=== PATIENT | female | born 1970 | race Caucasian/White ===

== ENCOUNTER 2016-08-30 18:56 | Emergency (ER) | payer OTHER ==
[~2016-08-30] VITALS: Ht 154.9 cm; Wt 58.1 kg
[~2016-08-30 18:56] MED LIST: ALBU2.5V13 NEB; CARI350T PO; HYDR8TAB2 PO; NITR0.4T SL
--- NOTE | 2016-08-30 20:25 | NUR ---
pt seen and examined by ermd with female nurse admissions officer. labs and ct ordered.
[2016-08-30 21:51] LABS: CREATININE 0.7 mg/dL (0.6-1.3); POTASSIUM 3.3 mmol/L (3.5-5.1)
[2016-08-30 21:56] LABS: HEMATOCRIT 40.4 % (37.0-47.0); HEMOGLOBIN 13.3 g/dL (12.0-16.0); MEAN CORPUSCULAR HEMOGLOBIN 32.9 uug (27.0-31.0); MEAN CORPUSCULAR HGB CONC 33 g/dL (32.0-37.0); PLATELET COUNT (AUTO) 227 K/uL (150-450); RED BLOOD CELL COUNT(AUTO) 4.04 MIL/uL (4.20-5.40); RED CELL DISTRIBUTION WIDTH 12.4 % (11.5-14.5); WHITE BLOOD COUNT (AUTO) 4.7 K/uL (4.0-11.2)
[2016-08-30 21:57] LABS: ALBUMIN 4.2 g/dL (3.4-5.0); BILIRUBIN,DIRECT 0.1 mg/dL (0.0-0.2); BILIRUBIN,TOTAL 0.3 mg/dL (0.2-1.0); TOTAL PROTEIN, SERUM 7.2 g/dL (6.4-8.2)
[2016-08-30 22:14] LABS: BAND % (MANUAL) 1 % (0-10); EOSINOPHILS % (MANUAL) 1 % (0-8); LYMPHOCYTES % (MANUAL) 38 % (20-40); MONOCYTES % (MANUAL) 8 % (2-10); NEUTROPHILS % (MANUAL) 52 % (42-75); PLATELET ESTIMATE ADEQUATE
--- NOTE | 2016-08-30 22:47 | NUR ---
pt wanted med for pain, Dr Maicas made aware.
[2016-08-30] MEDS ORDERED: HYDROMORPHONE 1 MG/1 ML DISP.SYRIN IM ONE (23:00)
[2016-08-30] MEDS ORDERED: ONDANSETRON 4 MG/2 ML VIAL IM ONE (23:00)
[2016-08-30] MEDS ORDERED: ONDANSETRON 4 MG/2 ML VIAL ONE (23:24)
[2016-08-30] MEDS ORDERED: HYDROMORPHONE 2 MG/1 ML DISP.SYRIN ONE (23:24)
--- NOTE | 2016-08-30 23:55 | NUR ---
pt given med for pain.....waiting for ermd to discharge pt.
--- NOTE | 2016-08-31 00:35 | NUR ---
Dr darling went to room to talk to pt regarding the ct results and answer questions. aci given to pt and discharged ambulatory in stable condition.
[2016-08-31 01:43] VITALS: BP 100/72
== END 2016-08-31 00:55 | disposition home or self-care (01) ==
LOC: ER 18:59
DX: R10.9 Unspecified abdominal pain (principal); F11.20 Opioid dependence, uncomplicated; Z88.2 Allergy status to sulfonamides; Z88.6 Allergy status to analgesic agent; Z88.8 Allergy status to other drugs, medicaments and biological substances
CPT/HCPCS: 36415; 74176; 80048; 80076; 83690; 84484; 85025; 96372 ×2; 99285; A4663; J1170; J2405; 70030-TC

== ENCOUNTER 2016-09-06 14:21 | Emergency (ER) | payer OTHER ==
[~2016-09-06] VITALS: Ht 154.9 cm; Wt 58.1 kg
--- NOTE | 2016-09-06 16:29 | NUR ---
at bedside assessing patient.
--- NOTE | 2016-09-06 17:06 | NUR ---
Discharge education and prescription provided to patient. Patient left unit ambulatory, AAOX4. vitals stable.
== END 2016-09-06 17:08 | disposition home or self-care (01) ==
LOC: ER 14:21
DX: L30.9 Dermatitis, unspecified (principal); Z88.6 Allergy status to analgesic agent; Z88.8 Allergy status to other drugs, medicaments and biological substances; Z88.2 Allergy status to sulfonamides
CPT/HCPCS: A4663

== ENCOUNTER → 2016-10-21 | Emergency (ER) | payer OTHER ==
[~2016-10-21] VITALS: Ht 154.9 cm; Wt 59.0 kg
[~2016-10-21] MED LIST changes: +ACETAMINOPHEN ES 500 MG TABLET ONE; +ACETAMINOPHEN ES 500 MG TABLET PO ONE; +KETOROLAC TROMETHAMINE 15 MG INJ IV ONE; +KETOROLAC TROMETHAMINE 15 MG INJ ONE
--- NOTE | 2016-10-21 19:45 | NUR ---
Came from triage for left sided chest pain 01/15 sharp/throbbing/achy type of pain, had this pain before, non radiating. MD at the bedside. Blood drawn by MARIA LUISA
[2016-10-21 20:00] LABS: EOSINOPHILS # (AUTO) 0.2 K/uL (0.0-0.7); HEMATOCRIT 41.3 % (37-47); HEMOGLOBIN 14.6 G/DL (12.0-16.0); LYMPHOCYTES # (AUTO) 1.7 K/UL (0.8-4.8); LYMPHOCYTES % (AUTO) 37.9 % (20.5-51.5); MEAN CORPUSCULAR HEMOGLOBIN 34.9 UUG (27.0-31.0); MEAN CORPUSCULAR HGB CONC 35 g/dL (32.0-37.0); MEAN CORPUSCULAR VOLUME 98.8 FL (81.0-99.0); MONOCYTES # (AUTO) 0.3 K/UL (0.1-1.30); NEUTROPHILS # (AUTO) 2.4 K/UL (1.8-8.9); NEUTROPHILS % (AUTO) 51.1 % (38.5-71.5); PLATELET COUNT (AUTO) 221 K/UL (150-450); RED BLOOD CELL COUNT(AUTO) 4.17 MIL/UL (4.2-5.4); RED CELL DISTRIBUTION WIDTH 13.3 % (11.5-14.5); WHITE BLOOD COUNT (AUTO) 4.6 K/UL (4.0-11.2)
--- NOTE | 2016-10-21 20:00 | NUR ---
Refused meds. aware. Attempted 2 times for peripheral IV.
[2016-10-21 20:11] LABS: CARBON DIOXIDE 27 mmol/L (21-32); CHLORIDE 104 mmol/L (98-107); CREATININE 0.9 mg/dL (0.6-1.3); GFR 68 mL/min (>60); GLUCOSE 113 mg/dL (74-106); POTASSIUM 3.8 mmol/L (3.5-5.1); SODIUM SERUM 142 mmol/L (136-145); UREA NITROGEN, BLOOD 12 mg/dL (7-18)
[2016-10-21 20:26] LABS: ALANINE AMINOTRANSFERASE 19 U/L (14-59); ALBUMIN 4.5 g/dL (3.4-5.0); ALKALINE PHOSPHATASE 57 U/L (50-136); ASPARTATE AMINOTRANSFERASE 24 U/L (15-37); BILIRUBIN,DIRECT < 0.1 mg/dL (0.0-0.2); BILIRUBIN,TOTAL 0.1 mg/dL (0.2-1.0); NT-PRO BNP 31 pg/mL (0-125); TOTAL PROTEIN, SERUM 7.9 g/dL (6.4-8.2)
--- NOTE | 2016-10-21 21:00 | NUR ---
Seen and re-evaluated by .
--- NOTE | 2016-10-21 21:05 | NUR ---
Patient discharged to home in stable conditon. Written and verbal after care instructions given. Patient verbalizes understanding of instructions.
[2016-10-21 21:12] VITALS: BP 110/86
== END | disposition home or self-care (01) ==
LOC: ER 19:21
DX: R07.81 Pleurodynia (principal); F17.200 Nicotine dependence, unspecified, uncomplicated; Z90.710 Acquired absence of both cervix and uterus; Z88.6 Allergy status to analgesic agent; Z88.8 Allergy status to other drugs, medicaments and biological substances; Z88.2 Allergy status to sulfonamides
CPT/HCPCS: 36415; 70030-TC; 71010; 85025; 85730; 93005; A4663; J1885

== ENCOUNTER 2016-12-04 22:55 | Emergency (ER) | payer OTHER ==
[~2016-12-04] VITALS: Ht 154.9 cm; Wt 59.0 kg
[~2016-12-04 22:55] MED LIST changes: -ACETAMINOPHEN ES 500 MG TABLET ONE; -ACETAMINOPHEN ES 500 MG TABLET PO ONE; -KETOROLAC TROMETHAMINE 15 MG INJ IV ONE; -KETOROLAC TROMETHAMINE 15 MG INJ ONE
[2016-12-05] MEDS: CYCLOBENZAPRINE HCL 10 MG TABLET PO ONE (00:40)
[2016-12-05 00:48] LABS: *BILIRUBIN,URIN NEGATIVE (NEGATIVE); *BLOOD, URINE NEGATIVE (NEGATIVE); *CLARITY,URINE CLEAR (CLEAR); *COLOR,URINE YELLOW (YELLOW); *KETONES,URINE 2+ (NEGATIVE); *PROTEIN,URINE NEGATIVE (NEGATIVE); *UROBILINOGEN,URINE 0.2 E.U./dl (NORMAL); LEUKOCYTE ESTERASE ,URINE NEGATIVE (NEGATIVE); NITRITE, URINE NEGATIVE (NEGATIVE); UGLUCOSE NEGATIVE (NEGATIVE)
[2016-12-05] MEDS ORDERED: CYCLOBENZAPRINE HCL 10 MG TABLET ONE (00:50)
[2016-12-05 00:51] LABS: *URINE HCG, QUAL NEGATIVE (NEGATIVE)
[2016-12-05 00:54] LABS: BACTERIA,URINE NONE SEEN /HPF (NONE SEEN); MUCUS,URINE FEW /LPF (0-FEW); RBC,URINE 0-3 /HPF (0-3); SQUAMOUS EPITHELIAL CELL,UR MODERATE /HPF (NONE SEEN); WBC,URINE 0-3 /HPF (0-3)
[2016-12-05] MEDS: DIAZEPAM 2 MG TABLET PO ONE ×2 (01:56→04:20)
[2016-12-05] MEDS ORDERED: DIAZEPAM 5 MG TABLET ONE ×2 (02:05→04:29)
--- NOTE | 2016-12-05 04:20 | NUR ---
Patient discharged to home in stable conditon. Written and verbal after care instructions given. Patient verbalizes understanding of instructions.
== END 2016-12-05 04:22 | disposition home or self-care (01) ==
LOC: ER 22:58
DX: R25.2 Cramp and spasm (principal); F17.210 Nicotine dependence, cigarettes, uncomplicated; Z90.710 Acquired absence of both cervix and uterus; Z88.8 Allergy status to other drugs, medicaments and biological substances; Z88.2 Allergy status to sulfonamides; Z88.6 Allergy status to analgesic agent
CPT/HCPCS: 84703; A4663

== ENCOUNTER 2016-12-06 20:36 | Emergency (ER) | payer OTHER ==
[~2016-12-06] VITALS: Ht 154.9 cm; Wt 59.0 kg
--- NOTE | 2016-12-06 22:16 | NUR ---
Respiratory at bedside for breathing treatment.
[2016-12-06] MEDS: ALBUTEROL SULFATE 2.5 MG/3 ML NEBU NEB ONE (22:17)
[2016-12-06] MEDS: IPRATROPIUM BROMIDE 0.5 MG/2.5 ML NEBU NEB ONE (22:18)
[2016-12-06] MEDS ORDERED: ALBUTEROL SULFATE 2.5 MG/3 ML NEBU ONE (22:20)
[2016-12-06] MEDS ORDERED: IPRATROPIUM BROMIDE 0.5 MG/2.5 ML NEBU ONE (22:21)
[2016-12-06] MEDS: DIAZEPAM 2 MG TABLET PO ONE (23:14)
--- NOTE | 2016-12-06 23:14 | NUR ---
Patient discharged to home in stable conditon. Written and verbal after care instructions given. Patient verbalizes understanding of instructions.
[2016-12-06 23:15] VITALS: BP 136/75
[2016-12-06] MEDS ORDERED: DIAZEPAM 5 MG TABLET ONE (23:22)
== END 2016-12-06 23:16 | disposition home or self-care (01) ==
LOC: ER 20:52
DX: R07.89 Other chest pain (principal); F17.200 Nicotine dependence, unspecified, uncomplicated; Z90.710 Acquired absence of both cervix and uterus; Z88.6 Allergy status to analgesic agent; Z88.8 Allergy status to other drugs, medicaments and biological substances; Z88.2 Allergy status to sulfonamides
CPT/HCPCS: 36415; 70030-TC; 71010; 93005; A4663; J3590

== ENCOUNTER 2018-05-09 13:53 | Emergency (ER) | payer OTHER ==
[~2018-05-09] VITALS: Ht 154.9 cm; Wt 60.3 kg
[~2018-05-09 13:53] MED LIST changes: -HYDR8TAB2 PO; -NITR0.4T SL
[2018-05-09] MEDS ORDERED: HYDR-3028 PO (14:08)
[2018-05-09] MEDS ORDERED: ASPI-869 PO (14:08)
[2018-05-09] MEDS ORDERED: BUSP5TAB3 PO (14:08)
[2018-05-09] MEDS ORDERED: HYDR-3026 PO (14:08)
[2018-05-09] MEDS ORDERED: ONDANSETRON ODT 4 MG TAB.RAPDIS SL ONE (14:15)
[2018-05-09] MEDS ORDERED: ALBUTEROL SULFATE 2.5 MG/3 ML NEBU NEB ONE (14:15)
[2018-05-09] MEDS ORDERED: HYDROCODONE/APAP 5-325MG TABLET PO ONE (14:15)
[2018-05-09] MEDS ORDERED: ALBUTEROL SULFATE 2.5 MG/3 ML NEBU ONE (14:20)
[2018-05-09] MEDS ORDERED: ONDANSETRON ODT 4 MG TAB.RAPDIS ONE (14:21)
[2018-05-09] MEDS ORDERED: HYDROCODONE/APAP 5-325MG TABLET ONE (14:22)
--- NOTE | 2018-05-09 15:06 | NUR ---
Patient is resting comfortably in bed with eyes closed, NAD noted.
[2018-05-09 15:52] VITALS: BP 104/70
--- NOTE | 2018-05-09 15:56 | NUR ---
Patient discharged to home in stable conditon. Written and verbal after care instructions given. Patient verbalizes understanding of instructions.
== END 2018-05-09 15:56 | disposition home or self-care (01) ==
LOC: ER 13:53
DX: G89.29 Other chronic pain (principal); R07.89 Other chest pain; R05 Cough; F17.210 Nicotine dependence, cigarettes, uncomplicated; Z90.710 Acquired absence of both cervix and uterus; Z90.49 Acquired absence of other specified parts of digestive tract; Z88.2 Allergy status to sulfonamides; Z88.6 Allergy status to analgesic agent; Z88.8 Allergy status to other drugs, medicaments and biological substances; Z88.5 Allergy status to narcotic agent
CPT/HCPCS: 71045; 93005; A4663; Q0162

== ENCOUNTER 2018-09-11 21:39 | Emergency (ER) | payer OTHER ==
[~2018-09-11] VITALS: Ht 154.9 cm; Wt 56.7 kg
[~2018-09-11 21:39] MED LIST changes: +ASPI-869 PO; +BUSP5TAB3 PO; +HYDR-3026 PO; +HYDR-3028 PO
[2018-09-11] MEDS ORDERED: ALBUTEROL SULFATE 2.5 MG/3 ML NEBU ONE (22:14)
[2018-09-11] MEDS ORDERED: IPRATROPIUM BROMIDE 0.5 MG/2.5 ML NEBU ONE (22:14)
[2018-09-11] MEDS ORDERED: IPRATROPIUM BROMIDE 0.5 MG/2.5 ML NEBU NEB ONE (22:15)
[2018-09-11] MEDS ORDERED: ALBUTEROL SULFATE 2.5 MG/3 ML NEBU NEB ONE (22:15)
[2018-09-11] MEDS ORDERED: methylPREDNISolone SOD SUCC 40 MG/ML VIAL IM ONE (22:15)
--- NOTE | 2018-09-11 22:15 | NUR ---
Pt. ambulated into ED w/ c/o worsening SOB over the past few hours, pt. does not appear to any respiratory distress, RR even and unlabored, speaks in full, clear and complete sentences, VSS, A/Ox4, pt. reports history of "bronchial asthma",
--- NOTE | 2018-09-11 22:18 | NUR ---
Rad. tech. at bedside for CXR
--- NOTE | 2018-09-11 22:18 | NUR ---
Phleb. tech. at bedside for blood draw,
--- NOTE | 2018-09-11 22:20 | NUR ---
RT at bedside for breathing tx,
[2018-09-11 22:31] LABS: BASOPHILS # (AUTO) 0.1 K/uL (0.0-8.0); BASOPHILS % (AUTO) 1.3 % (0.0-2.0); EOSINOPHILS # (AUTO) 0.1 K/uL (0.0-0.7); EOSINOPHILS % (AUTO) 1.5 % (0.0-7.0); HEMATOCRIT 38.9 % (31.2-41.9); HEMOGLOBIN 12.9 g/dL (10.9-14.3); LYMPHOCYTES # (AUTO) 2.3 K/uL (20.0-40.0); LYMPHOCYTES % (AUTO) 38.7 % (20.5-51.5); MEAN CORPUSCULAR HEMOGLOBIN 33.4 uug (24.7-32.8); MEAN CORPUSCULAR HGB CONC 33 g/dL (32.3-35.6); MEAN CORPUSCULAR VOLUME 100.6 fL (75.5-95.3); MONOCYTES # (AUTO) 0.4 K/uL (2.0-10.0); MONOCYTES % (AUTO) 6.6 % (0.0-11.0); NEUTROPHILS % (AUTO) 51.9 % (38.5-71.5); PLATELET COUNT (AUTO) 169 K/uL (179-408); RED BLOOD CELL COUNT(AUTO) 3.86 MIL/uL (3.63-4.92); WHITE BLOOD COUNT (AUTO) 5.8 K/uL (3.8-11.8)
[2018-09-11] MEDS ORDERED: methylPREDNISolone SOD SUCC 125 MG/2 ML VIAL ONE (22:33)
[2018-09-11 22:38] LABS: CREATININE 0.8 mg/dL (0.6-1.3); POTASSIUM 3.6 mmol/L (3.5-5.1)
--- NOTE | 2018-09-11 23:20 | NUR ---
Pt. resting in bed, receiving breathing tx, all pt. needs met, NAD
--- NOTE | 2018-09-12 00:32 | NUR ---
Patient discharged to home in stable conditon. Written and verbal after care instructions given. Patient verbalizes understanding of instructions. Pt. d/c w/ prescription per MD order, all belongings w/ pt., ID band removed, ambulated off unit w/ steady gait, NAD
== END 2018-09-12 00:35 | disposition home or self-care (01) ==
LOC: ER 21:43
DX: J20.9 Acute bronchitis, unspecified (principal); F17.290 Nicotine dependence, other tobacco product, uncomplicated; Z90.710 Acquired absence of both cervix and uterus; Z90.49 Acquired absence of other specified parts of digestive tract; Z88.8 Allergy status to other drugs, medicaments and biological substances; Z88.2 Allergy status to sulfonamides; Z79.82 Long term (current) use of aspirin; Z79.899 Other long term (current) drug therapy; Z88.5 Allergy status to narcotic agent
CPT/HCPCS: 36415; 71045; 80048; 84484; 85025; 93005; 94644; 96372; 99285; 99406; J2930; 70030-TC; A4663; J3590

== ENCOUNTER 2019-10-28 20:59 | Inpatient (IN) | payer OTHER ==
[~2019-10-28] VITALS: Ht 154.9 cm; Wt 66.7 kg
[2019-10-28] MEDS ORDERED: GABA300C PO (21:15)
[2019-10-28] MEDS ORDERED: [UNRECOGNIZED DRUG - REMARK] (21:15)
--- NOTE | 2019-10-28 21:15 | NUR ---
Dr. Ramírez at bedside for MSE.
[2019-10-28] MEDS ORDERED: diphenhydrAMINE 50 MG/1 ML VIAL ONE (21:23)
[2019-10-28] MEDS ORDERED: HYDROMORPHONE 2 MG/1 ML DISP.SYRIN ONE ×3 (21:23→22:48)
[2019-10-28] MEDS ORDERED: ONDANSETRON 4 MG/2 ML VIAL ONE ×3 (21:24→22:48)
[2019-10-28] MEDS ORDERED: HYDROMORPHONE 1 MG/1 ML DISP.SYRIN IV ONE ×3 (21:30→22:45)
[2019-10-28] MEDS ORDERED: ONDANSETRON 4 MG/2 ML VIAL IV ONE ×3 (21:30→22:45)
[2019-10-28] MEDS ORDERED: IV NORMAL SALINE 1000 ML BAG IV ONE (21:30)
[2019-10-28] MEDS ORDERED: diphenhydrAMINE 50 MG/1 ML VIAL IV ONE (21:30)
[2019-10-28 21:37] LABS: BASOPHILS % (AUTO) 0.4 % (0.0-2.0); EOSINOPHILS # (AUTO) 0.1 K/uL (0.0-0.7); HEMOGLOBIN 12.8 g/dL (10.9-14.3); LYMPHOCYTES # (AUTO) 1.3 K/uL (20.0-40.0); LYMPHOCYTES % (AUTO) 18.5 % (20.5-51.5); MEAN CORPUSCULAR HGB CONC 35 g/dL (32.3-35.6); MEAN CORPUSCULAR VOLUME 98.3 fL (75.5-95.3); MONOCYTES # (AUTO) 0.7 K/uL (2.0-10.0); MONOCYTES % (AUTO) 10.4 % (0.0-11.0); NEUTROPHILS # (AUTO) 4.9 K/uL (1.8-8.9); NEUTROPHILS % (AUTO) 69.7 % (38.5-71.5); PLATELET COUNT (AUTO) 210 K/uL (179-408); RED BLOOD CELL COUNT(AUTO) 3.76 MIL/uL (3.63-4.92)
--- NOTE | 2019-10-28 21:37 | NUR ---
Pt out of ER for CT.
[2019-10-28 21:46] LABS: CREATININE 0.9 mg/dL (0.6-1.3); POTASSIUM 3.6 mmol/L (3.5-5.1)
--- NOTE | 2019-10-28 21:48 | NUR ---
Pt back to ER from CT.
[2019-10-28 21:57] LABS: BILIRUBIN,DIRECT 0.2 mg/dL (0.0-0.2); TOTAL PROTEIN, SERUM 6.8 g/dL (6.4-8.2)
--- NOTE | 2019-10-28 22:10 | NUR ---
Pt provided urine sample, sent to lab, patient states still in pain and still has nausea, made aware.
[2019-10-28 22:16] LABS: *BILIRUBIN,URIN 1+ (NEGATIVE); *BLOOD, URINE NEGATIVE (NEGATIVE); *COLOR,URINE AMBER (YELLOW); *KETONES,URINE TRACE (NEGATIVE); *UROBILINOGEN,URINE 0.2 E.U./dl (NORMAL); LEUKOCYTE ESTERASE ,URINE TRACE (NEGATIVE); NITRITE, URINE NEGATIVE (NEGATIVE); PH,URINE 5.5 (5.0-8.0); UGLUCOSE NEGATIVE (NEGATIVE)
[2019-10-28 22:19] LABS: *URINE HCG, QUAL NEGATIVE (NEGATIVE)
[2019-10-28 22:23] LABS: *CLARITY,URINE SLIGHTLY HAZY (CLEAR)
[2019-10-28 22:24] LABS: BACTERIA,URINE FEW /HPF (NONE SEEN); RBC,URINE 0-3 /HPF (0-3); WBC,URINE 0-3 /HPF (0-3)
[2019-10-28 22:25] LABS: MUCUS,URINE FEW /LPF (0-FEW); SQUAMOUS EPITHELIAL CELL,UR MODERATE /HPF (NONE SEEN)
--- NOTE | 2019-10-28 22:31 | NUR ---
Dr. Ramírez on panel call with Doreen Serna NP. Patient accepted for admission to [facility], diagnosis: bowel obstruction.
--- NOTE | 2019-10-28 22:44 | NUR ---
Nasogastric tube inserted, double verified placement via stethoscope with MARIA LUISA Clemons. Called Xray for placement verification.
--- NOTE | 2019-10-28 22:52 | NUR ---
Xray at bedside.
--- NOTE | 2019-10-28 23:00 | NUR ---
Dr. Ramírez verified placement of NG tube via xray.
--- NOTE | 2019-10-28 23:05 | NUR ---
Report given to Ruthy GLASS Tele.
[2019-10-28] MEDS ORDERED: MORPHINE SULFATE 2 MG/1 ML DISP.SYRIN IV PRN (23:15)
[2019-10-28] MEDS ORDERED: MAGNESIUM HYDROXIDE 30 ML LIQUID UDC PO PRN (23:15)
[2019-10-28] MEDS ORDERED: Z GUARD REMEDY PASTE 57 GM TUBE TOP PRN (23:15)
--- NOTE | 2019-10-28 23:45 | NUR ---
Patient received into care via gurney from ER. Patient is alert/oriented x3 and is complaining of upper gastric pain. Patient has NG tube measured at 60cm and IV heplock in right forearm. All pertinent assessments completed. Pt has been oriented to the unit and all safety, fall, and isolation precautions are in place. Will continue to monitor and assess.
[2019-10-28 23:50] VITALS: BP 146/77
--- NOTE | 2019-10-29 00:05 | NUR ---
Pt notified this nurse that NG tube 'slipped out' when she was using the bathroom. This nurse inserted new NG tube at same marking as previous NG tube and called for stat KUB Xray to confirm placement. Will continue to monitor and assess.
[2019-10-29] MEDS ORDERED: CEFTRIAXONE /D5W 50ML IVPB **ER PYXIS IV ONE (00:51)
[2019-10-29] MEDS: CEFTRIAXONE 1 G in IV DEXTROSE 5% 50 ML IV SCH ×2 (01:26→20:28)
[2019-10-29] MEDS: IV NS 1000 ML 1,000 ML IV PRN ×2 (01:52→19:11)
--- NOTE | 2019-10-29 03:10 | NUR ---
KUB Xray results confirm correct placement of NGT in stomach.
[2019-10-29] MEDS: HYDROMORPHONE 1 MG/1 ML DISP.SYRIN IV PRN ×2 (03:27→08:20)
[2019-10-29 05:49] VITALS: BP 127/70
--- NOTE | 2019-10-29 06:00 | NUR ---
PATIENT SLEPT INTERMITTENTLY AFTER ADMISSION TO UNIT. PATIENTS COMPLAINT OF PAIN WAS ADDRESSED WITH PRESCRIBED ANALGESIC, WHICH WAS TOLERATED WELL, WITH NO ADVERSE SIDE EFFECTS VERBALIZED BY PATIENT OR NOTED/OBSERVED BY THIS NURSE. IV SITE ON RIGHT FOREARM IS PATENT AND INTACT AND RUNNING NS @ 75mL/HR, ORDERED. NGT IS IN PLACE AND ATTACHED TO INTERMITTENT SUCTIONING, WITH APPROXIMATELY 1L REMOVED SINCE ADMISSION TO UNIT. ALL PATIENT NEEDS WERE ADDRESSED AND PATIENT IS WARM, DRY, AND COMFORTABLE. SAFETY, FALL, ISOLATION, AND ASPIRATION PRECAUTIONS ARE IN PLACE. CALL LIGHT AND PERSONAL ITEMS ARE WITHIN REACH AT ALL TIMES.
[2019-10-29 06:48] LABS: BASOPHILS % (AUTO) 0.2 % (0.0-2.0); EOSINOPHILS # (AUTO) 0.1 K/uL (0.0-0.7); EOSINOPHILS % (AUTO) 1.7 % (0.0-7.0); HEMATOCRIT 35.2 % (31.2-41.9); HEMOGLOBIN 11.7 g/dL (10.9-14.3); LYMPHOCYTES # (AUTO) 1.2 K/uL (20.0-40.0); LYMPHOCYTES % (AUTO) 22.6 % (20.5-51.5); MEAN CORPUSCULAR HEMOGLOBIN 33.3 uug (24.7-32.8); MEAN CORPUSCULAR HGB CONC 33 g/dL (32.3-35.6); MONOCYTES # (AUTO) 0.6 K/uL (2.0-10.0); MONOCYTES % (AUTO) 12.2 % (0.0-11.0); NEUTROPHILS # (AUTO) 3.2 K/uL (1.8-8.9); NEUTROPHILS % (AUTO) 63.3 % (38.5-71.5); PLATELET COUNT (AUTO) 186 K/uL (179-408); RED BLOOD CELL COUNT(AUTO) 3.52 MIL/uL (3.63-4.92); WHITE BLOOD COUNT (AUTO) 5.1 K/uL (3.8-11.8)
[2019-10-29 06:58] LABS: CREATININE 0.8 mg/dL (0.6-1.3); MAGNESIUM 1.6 mg/dL (1.8-2.4); PHOSPHOROUS 4.8 mg/dL (2.5-4.9); POTASSIUM 3.6 mmol/L (3.5-5.1)
--- NOTE | 2019-10-29 08:00 | NUR ---
Received pt in bed AOx4, on RA with no SOB or distress noted nor reported at this time. IV on RFA 20g running NS @ 75cc, flushed and patent. Complained of 8/10 sharp abdominal pain, asking for Dilaudid. No other complaints at this time. Call light within reach, bed locked in lowest position with siderails 2xup. Will monitor.
--- NOTE | 2019-10-29 09:45 | NUR ---
Pt's NG tube got dislodged. Per pt, she sneezed real hard d/t her allergies and it came off.
[2019-10-29] MEDS: ONDANSETRON 4 MG/2 ML VIAL IV PRN ×2 (10:14→19:49)
--- NOTE | 2019-10-29 10:30 | NUR ---
Pt still crying and moaning. Stated that Dilaudid does not work for her abdominal pain. Will inform
[2019-10-29] MEDS ORDERED: DIPH25TA62 PO (10:57)
[2019-10-29] MEDS ORDERED: FLUT1BLS11 IH (10:57)
[2019-10-29] MEDS ORDERED: TIOT18CA3 IH (10:57)
[2019-10-29] MEDS ORDERED: ALBU2.5V13 IH (10:57)
[2019-10-29] MEDS ORDERED: DIAZ10TA PO (10:57)
[2019-10-29] MEDS ORDERED: HYDR4TAB4 PO (10:58)
[2019-10-29 11:29] VITALS: BP 105/67
[2019-10-29] MEDS ORDERED: HYDROMORPHONE 1 MG/1 ML DISP.SYRIN IV PRN (11:30)
[2019-10-29] MEDS: diphenhydrAMINE 50 MG/1 ML VIAL IV PRN ×2 (12:23→19:48)
[2019-10-29] MEDS: MAGNESIUM SULFATE/D5W 100 ML IV SCH ×2 (12:23→13:56)
[2019-10-29] MEDS: HYDROMORPHONE 2 MG/1 ML DISP.SYRIN IV PRN ×3 (13:57→23:57)
[2019-10-29 14:00] VITALS: BP 124/77
--- NOTE | 2019-10-29 15:30 | NUR ---
Called and talked to Dr. Jeffers regarding surgical consult from Doreen Serna NP. History and complaints given to Dr. Jeffers.
[2019-10-29] MEDS ORDERED: DIATR MEGLU/DIATRIZOATE SODIUM 30 ML BOTTLE ONE ×2 (17:25→17:29)
--- NOTE | 2019-10-29 17:44 | NUR ---
Radiology in room to explain procedure XR small bowel follow through
--- NOTE | 2019-10-29 19:14 | NUR ---
Abbie Wu CHILD WELFARE WORKER called to cancel XR small bowel follow through procedure. Resched for zac 8am. Radiology aware
--- NOTE | 2019-10-29 19:19 | NUR ---
DIETARY AID HIRAL ALVAREZ CANCELATION OF SMALL BOWEL FALLOW THROUGH BY EUNICE ANGEL @1841 IMAGES TAKEN OF INITIAL RADIOGRAPH @1800 IMAGES TAKEN OF PRIMARY RADIOGRAPH @1803 (INITIAL) NEXT RADIOGRAPH TO HAVE FALLOWED IF NOT CANCELED @1903 (1HOUR) NEXT RADIOGRAPH TO HAVE FALLOWED AFTER 1HOUR @2002 (2HOUR) NEXT RADIOGRAPH TO HAVE FALLOWED AFTER 2HOUR @2202 (4HOUR) EXAM IN PART WITH RADIOLOGIST BARB MORTON MD
[2019-10-29 20:05] VITALS: BP 137/76
--- NOTE | 2019-10-29 21:00 | NUR ---
pt has a temp, refused tylenol, cooling measures done.
[2019-10-29] MEDS: LORAZEPAM 2 MG/1 ML VIAL IV PRN (21:25)
[2019-10-30] MEDS: ONDANSETRON 4 MG/2 ML VIAL IV PRN ×4 (01:29→20:15)
[2019-10-30] MEDS: diphenhydrAMINE 50 MG/1 ML VIAL IV PRN ×4 (01:33→22:11)
[2019-10-30] MEDS: LORAZEPAM 2 MG/1 ML VIAL IV PRN ×3 (02:37→17:44)
[2019-10-30 04:58] VITALS: BP 119/71
[2019-10-30] MEDS: HYDROMORPHONE 2 MG/1 ML DISP.SYRIN IV PRN ×4 (06:12→20:15)
--- NOTE | 2019-10-30 06:47 | NUR ---
END OF SHIFT REPORT Patient rested well in between care; c/o pain, nausea and itching, medicated accordingly see eMAR; re-swabbed for covid last night and sent to lab; 1st covid 19 result out and is NEGATIVE; FAXED paperwork from [facility] given to patient; needs attended; icechips to wet mouth only; pt will undergo small bowel follow through this AM;
--- NOTE | 2019-10-30 08:30 | NUR ---
Received pt in bed asleep but arousable to name. On RA with no SOB or distress noted at this time. NGT in place with intermittent suction, with dark green drainage. Abdomen still very hard and distended, complained of pain in the area, Dilaudid just given by PM shift nurse. Safety precautions in place and reeducated pt to call if needs to get up. Bed locked in lowest position with siderails 2x up. Call light and cellphone within reach. Will monitor
[2019-10-30] MEDS: IV NS 1000 ML 1,000 ML IV PRN ×2 (08:37→22:11)
[2019-10-30] MEDS ORDERED: FLUTICASONE/SALMETEROL 100/50 1 INH DISK.W.DEV IH SCH (11:00)
[2019-10-30 12:02] VITALS: BP 112/69
[2019-10-30] MEDS ORDERED: ALBUTEROL SULFATE 2.5 MG/ 0.5 ML NEBU IH SCH (13:30)
[2019-10-30] MEDS ORDERED: DIATR MEGLU/DIATRIZOATE SODIUM 30 ML BOTTLE PO ONE (14:00)
--- NOTE | 2019-10-30 14:53 | NUR ---
Pt vomitted a few minutes from contrast administration. Emesis was dark green
--- NOTE | 2019-10-30 17:01 | NUR ---
Intermittent suction stopped due to XR small bowel through. Drainage 600mL
--- NOTE | 2019-10-30 18:55 | NUR ---
Pt tried to vomit throughout shift. Asking for pain her meds all day. Abdomen still distended. XR small bowel follow through ongoing. Will endorse to next shift
--- NOTE | 2019-10-30 19:30 | NUR ---
Received patient lying in bed. AAOX4. In no acute distress. Complained of abdominal pain, will provide pain medication per order. Denies any SOB. O2 sat at 99% on RA. NGT intact and attached to intermittent suction. With brownish drainage noted. Also complain of nausea, will provide Zofran per order. IV site on right FA intact and patent. IVF infusing. Droplet and contact precaution observed. Safety measure initiated and call ignacio within reached.
[2019-10-30 20:06] VITALS: BP 117/60
[2019-10-30] MEDS: CEFTRIAXONE 1 G in IV DEXTROSE 5% 50 ML IV SCH (20:15)
--- NOTE | 2019-10-30 21:00 | NUR ---
truck engine technician/Bk reported there was not enough contrast when he did the small bowel X-ray. Sated might have to take another x-ray in AM.
[2019-10-31] VITALS (13 sets, daily range): BP systolic 77–174; BP diastolic 29–116
[2019-10-31] MEDS: HYDROMORPHONE 2 MG/1 ML DISP.SYRIN IV PRN ×4 (00:16→20:32)
--- NOTE | 2019-10-31 00:50 | NUR ---
Patient was found by BROOKE Toney sitting on the floor. This nurse spoke to the patient and ask if she fell. Patient stated, "I didn't fall, I went down and sat on the floor because it helps with my back pain". Patient noted sitting upright with her back leaning on the bed. Patient stated she did not fall and wanted to stay in the floor for a while as it helps with her back pain. Patient was given Dilaudid about an hour ago. Patient stated she will return back to bed in a while. Refused to get back to bed at this time.
--- NOTE | 2019-10-31 02:00 | NUR ---
Noted patient back in bed, asleep at this time.
[2019-10-31] MEDS: LORAZEPAM 2 MG/1 ML VIAL IV PRN ×3 (02:02→22:08)
--- NOTE | 2019-10-31 03:16 | NUR ---
Trevor called from the lab reported Negative Covid-19 result twice.
[2019-10-31] MEDS: ONDANSETRON 4 MG/2 ML VIAL IV PRN ×3 (05:31→12:37)
[2019-10-31] MEDS: FLUTICASONE/VILANTEROL 1 EACH BLST.W.DEV INH SCH (08:33)
[2019-10-31] MEDS: diphenhydrAMINE 50 MG/1 ML VIAL IV PRN (08:36)
--- NOTE | 2019-10-31 09:00 | NUR ---
Pt received, assessed, C/O nausea and pain. PRN pain medication and Zofran previously administered and unavailable at this time. Pt teaching provided. Benadryl and Ativan administered for anxiety. New IV inserted at right wrist by ER nurse. Pt is a very difficult stick. made aware. New order received for midline insertion. 2 negative Covid tests resulted. Pt approved to be transferred to M/S 3rd floor. Report given to nurse Jacobson. Pt belongings, chart, and cassette medications transported safely with Pt upstairs by Eden and Kavon RNs.
--- NOTE | 2019-10-31 09:30 | NUR ---
PATIENT RECEIVED FROM SECOND FLOOR, PATIENT IS ALERT, ORIENTED X4, VERBALLY RESPONSIVE, NO SOB, RESP EVEN NONLABORED,SKIN WARM AND DRY TO TOUCH, ABDOMEN TENDER, AND DISTENDED, SEEMS VERY UNCOMFORTABLE, COMPLAINING PAIN TO HER STOMACH, NG TUBE INTACT, ATTACHED TO THE INTERMITTENT SUCTIONING, KEPT NPO, REPOSITIONED PATIENT ACCORDING TO HER COMFORT.AMBULATORY. STEADY GAIT
--- NOTE | 2019-10-31 10:16 | NUR ---
radiology called and reproted that patient still has small bowel obstruction, PRABHJOT RUIZ made aware. patient received from Addendum: 10/31/19 at 1036 by ADDISON BHATIA RN RN second floor, NPO, small bowel obstruction, Abbie from GI aware.
[2019-10-31 11:01] LABS: BASOPHILS % (AUTO) 0.2 % (0.0-2.0); EOSINOPHILS # (AUTO) 0.1 K/uL (0.0-0.7); EOSINOPHILS % (AUTO) 1.4 % (0.0-7.0); HEMATOCRIT 38.6 % (31.2-41.9); HEMOGLOBIN 13.5 g/dL (10.9-14.3); LYMPHOCYTES # (AUTO) 0.7 K/uL (20.0-40.0); LYMPHOCYTES % (AUTO) 18.5 % (20.5-51.5); MEAN CORPUSCULAR HEMOGLOBIN 34.4 uug (24.7-32.8); MEAN CORPUSCULAR HGB CONC 35 g/dL (32.3-35.6); MEAN CORPUSCULAR VOLUME 98.5 fL (75.5-95.3); MONOCYTES # (AUTO) 0.6 K/uL (2.0-10.0); MONOCYTES % (AUTO) 16.8 % (0.0-11.0); NEUTROPHILS # (AUTO) 2.3 K/uL (1.8-8.9); NEUTROPHILS % (AUTO) 63.1 % (38.5-71.5); PLATELET COUNT (AUTO) 208 K/uL (179-408); RED BLOOD CELL COUNT(AUTO) 3.92 MIL/uL (3.63-4.92); WHITE BLOOD COUNT (AUTO) 3.6 K/uL (3.8-11.8)
[2019-10-31 11:13] LABS: BILIRUBIN,TOTAL 0.5 mg/dL (0.2-1.0); CREATININE 0.7 mg/dL (0.6-1.3); MAGNESIUM 1.7 mg/dL (1.8-2.4); PHOSPHOROUS 3.2 mg/dL (2.5-4.9); POTASSIUM 3.1 mmol/L (3.5-5.1); TOTAL PROTEIN, SERUM 7.3 g/dL (6.4-8.2)
[2019-10-31 11:27] LABS: BAND % (MANUAL) 6 % (0-10); EOSINOPHILS % (MANUAL) 1 % (0-8); LYMPHOCYTES % (MANUAL) 20 % (20-40); MONOCYTES % (MANUAL) 14 % (2-10); NEUTROPHILS % (MANUAL) 59 % (42-75)
[2019-10-31] MEDS: IV NS 1000 ML 1,000 ML IV PRN (11:27)
--- NOTE | 2019-10-31 12:00 | NUR ---
PATIENT IV LINE TO RIGHT INNER FORARM GOT INFILTRATED, TRIED TO START AGAIN, PATIENT REPRESENT WITH VERY THIN VEINS, UNSUCCESSFUL TO START IV LINE, CHARGE NURSE TRIED WELL, CALLED PAPER COUNTER TO GET THE TECH FOR MIDLINE INSERTION.
[2019-10-31] MEDS: POTASSIUM CHLORIDE 50 ML IV SCH ×2 (12:36→12:45)
[2019-10-31] MEDS: MAGNESIUM SULFATE/D5W 100 ML IV SCH ×3 (13:45→14:45)
--- NOTE | 2019-10-31 13:49 | NUR ---
MIDLINE INSERTED BY TECH AT RIGHT BRACHIAL
[2019-10-31] MEDS: PIPERACILLIN SODIUM/TAZOBACTAM 3.375 G in IV DEXTROSE 5% 50 ML IV SCH ×2 (14:00→22:46)
[2019-10-31] MEDS ORDERED: HYDROMORPHONE 1 MG/1 ML DISP.SYRIN IV ONE (14:00)
[2019-10-31] MEDS: IPRATROPIUM BROMIDE 0.5 MG/2.5 ML NEBU NEB SCH ×2 (14:05→20:20)
[2019-10-31] MEDS ORDERED: BUPIVACAINE 0.25% 30 ML VIAL ONE (14:05)
[2019-10-31] MEDS ORDERED: LIDOCAINE 1%-EPI 1:100,000 20 ML VIAL ONE (14:05)
[2019-10-31] MEDS ORDERED: BACITRACIN ZINC OINT 15 GM TUBE ONE (14:06)
--- NOTE | 2019-10-31 14:15 | NUR ---
REPORT GIVEN TO BILL AND DR WHITE FOR ADMINISTERED DILAUDID 0.5MG ADMINISTERED AT 1414, AND DILAUDID 2MG ADMINISTERED 3 HOURS AGO, PATIENT ALSO HAVE RECEIVED ATIVAN AND BENADRYL WELL IN THE MORNING
--- NOTE | 2019-10-31 14:20 | NUR ---
PATIENT IS TAKEN TO SURGERY BY OR NURSES, PATIENT ALERT, ORIENTED X4, NO SOB, RESP EVEN NONLABORED, TENDER AND DISTENDED ABDOMEN, MIDLINE TO RIGHT UPPER ARM INTACT, FIRST BAG OF POTASSIUM INFUSING.,
--- NOTE | 2019-10-31 14:30 | NUR ---
1400 SCHEDULED ZOSYN IV ADMINISTERED IN THE OR, PATIENT IS IN THE SURGERY ROOM
[2019-10-31] MEDS ORDERED: HYDROMORPHONE 2 MG/1 ML DISP.SYRIN ONE ×3 (14:31→14:33)
--- NOTE | 2019-10-31 14:44 | NUR ---
PATIENT IS IN SURGERY
[2019-10-31] MEDS ORDERED: SEVOFLURANE 250 ML BOTTLE ONE (16:15)
--- NOTE | 2019-10-31 19:30 | NUR ---
patient still in surgery, report given to ccu nurse Kwesi, endorsed about pending magnesium and potassium administration.
--- NOTE | 2019-10-31 20:00 | NUR ---
Patient arrived on unit @1957 from post-op recovery room. Patient underwent an exploratory laparotomy with extensive lysis of adhesions omental and small bowel, and repair of ventral/incisional hernia. Total time in OR 5h 12min, anesthesia end @1937. Patient arrived on hospital bed, intubated on mechanical ventilator, with eyes taped shut. NG tube present in the Left nare. Ventilator settings AC 14, Tidal volume 400, FiO2 50%, PEEP 5. ET tube 7.0 marked @20cm at the lip. Patient has a single lumen midline in the ANUEL. Orders to continue pre-op antibiotics, Lactated Ringer's @150mL/Hr, I/O q4hr, NOP, NGT connected to low intermittent suction. On monitor patient sinus tachycardia and hypertensive 167/112.
--- NOTE | 2019-10-31 20:00 | NUR ---
Received pt in OR orally intubated with 7.0 ETT~20cm at lip line and placed on Ga vent with the following settings of AC-14, Vt-400, PEEP+5, FIO2-50%. No s/s of respiratory distress noted. Vent and alarms checked and reset.
--- NOTE | 2019-10-31 20:05 | NUR ---
Spoke with the patient's previus nurse from the 3rd floor Med Surg unit, and she informed me that she handed the surgical team the remainder of the potassium and magnesium replacement IV bags. Surgical nurse Nae GLASS informed me that these were given during surgery, and indicated in the handwritten anesthesiologist surgical notes.
--- NOTE | 2019-10-31 20:05 | NUR ---
Pt transferred to CCU-3 with 2 RN's and RT at bedside. No distress noted.
--- NOTE | 2019-10-31 20:20 | NUR ---
Due to elevated HR-132bpm, HHN tx not given. MARIA LUISA Orosco aware.
[2019-10-31] MEDS ORDERED: IV LACTATED RINGERS SOLUTION 1,000 ML BAG IV PRN (20:45)
[2019-10-31] MEDS ORDERED: PROPOFOL 100 ML IV PRN (21:00)
--- NOTE | 2019-10-31 22:00 | NUR ---
father jun called and given an update on patient's condition
--- NOTE | 2019-10-31 23:30 | NUR ---
father called twice and left a message to get consent for central line , no response , lawn and tree service spray supervisor notified of ER DOCTOR necessity for central line placement due to incompatibility of diprivan and zosyn going in one line
[2019-11-01] VITALS (83 sets, daily range): BP systolic 61–158; BP diastolic 29–113
--- NOTE | 2019-11-01 00:30 | NUR ---
Dr. Lopez arrived to insert central george catheter.
--- NOTE | 2019-11-01 00:30 | NUR ---
dr castaneda ER doctor at bedside assisted by primary nurse iman er nurse pinky to insert the central line
[2019-11-01] MEDS: ACETAMINOPHEN 650 MG SUPP.RECT RC PRN ×4 (00:34→22:38)
[2019-11-01] MEDS: HYDROMORPHONE 2 MG/1 ML DISP.SYRIN IV PRN (00:35)
--- NOTE | 2019-11-01 01:15 | NUR ---
Dr. Lopez completed central line insertion @0115. 20cm 3-lumen central catheter inserted into the right internal jugular vein, and secured with sutures. Procedure completed in a sterile fashion with minimal blood loss. Central line dressing applied by myself in a sterile manner. Patient cleaned and placed back into a comfortable position. Order placed for stat CXR to confirm placement.
[2019-11-01] MEDS: IPRATROPIUM BROMIDE 0.5 MG/2.5 ML NEBU NEB SCH ×4 (01:42→19:47)
[2019-11-01] MEDS: PROPOFOL 100 ML IV PRN ×5 (02:04→19:21)
--- NOTE | 2019-11-01 02:25 | NUR ---
Called Dr. Lopez to inform him that the tip of the central line is in the right atrium. He stated he would come up to the unit as he needs to withdraw the catheter some.
--- NOTE | 2019-11-01 03:20 | NUR ---
Placed call to cardiology in regards to the patient's elevated heart rate. Awaiting return call.
--- NOTE | 2019-11-01 03:22 | NUR ---
Placed call to [facility] in regards to RT's observation that the patient is doing better with higher tidal volumes. Awaiting call back.
[2019-11-01] MEDS ORDERED: METOPROLOL TARTRATE 5 MG/5 ML VIAL IVP PRN (03:30)
--- NOTE | 2019-11-01 03:30 | NUR ---
Due to Dr Manuel order, increased Vt to 550. Pt seemed more comfortable. MARIA LUISA Orosco aware.
--- NOTE | 2019-11-01 03:30 | NUR ---
Spoke with on-call distribution operation supervisor Dr. Vieira. lilliame report of the patient's current condition. He ordered Metoprolol 5mg IV push q3hr for HR >130, hold if SBP <100
[2019-11-01] MEDS: LORAZEPAM 2 MG/1 ML VIAL IV PRN (03:47)
[2019-11-01] MEDS: IV LACTATED RINGERS SOLUTION 1,000 ML IV PRN ×3 (03:54→16:21)
--- NOTE | 2019-11-01 05:17 | NUR ---
At this time pt tachycardic, still on present vent settings. After increased Vt, RR decreased to 17bpm. ETT secured with [place] Fast. Sx done. Resus. bag at bedside. Vent and alarms checked and reset.
[2019-11-01 05:24] LABS: BASOPHILS % (AUTO) 0.1 % (0.0-2.0); CREATININE 1.3 mg/dL (0.6-1.3); EOSINOPHILS % (AUTO) 0.1 % (0.0-7.0); HEMOGLOBIN 15.3 g/dL (10.9-14.3); LYMPHOCYTES # (AUTO) 0.9 K/uL (20.0-40.0); LYMPHOCYTES % (AUTO) 9.4 % (20.5-51.5); MEAN CORPUSCULAR HEMOGLOBIN 34.1 uug (24.7-32.8); MEAN CORPUSCULAR HGB CONC 34 g/dL (32.3-35.6); MEAN CORPUSCULAR VOLUME 100.1 fL (75.5-95.3); MONOCYTES # (AUTO) 0.8 K/uL (2.0-10.0); NEUTROPHILS % (AUTO) 82.4 % (38.5-71.5); PHOSPHOROUS 4.1 mg/dL (2.5-4.9); PLATELET COUNT (AUTO) 210 K/uL (179-408); POTASSIUM 4.1 mmol/L (3.5-5.1); RED BLOOD CELL COUNT(AUTO) 4.49 MIL/uL (3.63-4.92); WHITE BLOOD COUNT (AUTO) 9.7 K/uL (3.8-11.8)
[2019-11-01 05:35] LABS: MAGNESIUM 1.1 mg/dL (1.8-2.4)
[2019-11-01] MEDS: PIPERACILLIN SODIUM/TAZOBACTAM 3.375 G in IV DEXTROSE 5% 50 ML IV SCH ×3 (05:53→22:13)
--- NOTE | 2019-11-01 06:00 | NUR ---
Critical result for Magnesium 1.1. This indicates that most likely the magnesium replacement was not given during surgery as I was informed it was. The potassium was normal 4.1
[2019-11-01] MEDS: PHENYLEPHRINE IV 50 MG in IV NORMAL SALINE 245 ML IV PRN ×2 (06:48→21:00)
--- NOTE | 2019-11-01 06:48 | NUR ---
Started Neosynepherine @0.5mcg/kg/min due to drop in blood pressure.
--- NOTE | 2019-11-01 06:55 | NUR ---
Dr. Dash DO called back after the second attempt to contact her. New order for Magnesium sulfate 4 gram IV, and Calcium Gluconate 1 amp IV. Orders entered.
[2019-11-01] MEDS ORDERED: CALCIUM GLUCONATE IV 1 GM in IV NORMAL SALINE 100 ML IV ONE (07:00)
--- NOTE | 2019-11-01 07:15 | NUR ---
Hand off report given to Sarah GLASS. Informed of new order for magnesium and calcium gluconate.
[2019-11-01] MEDS: ALBUTEROL SULFATE 2.5 MG/ 0.5 ML NEBU NEB PRN ×2 (07:50→13:01)
--- NOTE | 2019-11-01 07:50 | NUR ---
INITIAL VENT CHECK DONE WITH MD ORDERED VENT SETTINGS. ALARMS ON AND AUDIBLE. AMBUBAG AT BEDSIDE. ET TUBE PLACEMENT SECURED, 7.0, 20 LIP LINE, CUFF CHECK W/ SEGMENT ASSEMBLER. HME CHANGED. ORAL CARE DONE. SUCTIONED SMALL AMOUNTS OF PALE YELLOW SECRETIONS. HEART RATE WAS HIGH, RN AWARE. NO PRN ALBUTEROL GIVEN. TX GIVEN, TOLERATES WELL. WILL CONTINUE TO MONITOR.
[2019-11-01] MEDS: MAGNESIUM SULFATE/D5W 100 ML IV SCH ×4 (07:59→11:24)
[2019-11-01 08:36] LABS: ABG BASE EXCESS -2.1 mmol/L; ABG HCO3 20.6 mmol/L; ABG PCO2 30.2 mmHg (35.0-45.0); ABG PH 7.451 (7.350-7.450); ABG PO2 211.7 mmHg (75.0-100.0); ABG SITE LEFT RADIAL; ABG TOTAL HEMOGLOBIN 15.7 G/dL (12.0-16.0); MetHb 0.5 % (0.0-1.5); O2Hb 98.3 % (94.0-97.0); VENT MODE VENT - A/C; VT, ABG 550 mL
--- NOTE | 2019-11-01 08:40 | NUR ---
DUE TO ABG RESULTS, PT FIO2 WAS TITRATED DOWN TO 30%. NO OTHER CHANGES MADE. RN AWARE.
[2019-11-01] MEDS: FLUTICASONE/VILANTEROL 1 EACH BLST.W.DEV INH SCH (09:00)
--- NOTE | 2019-11-01 09:25 | NUR ---
Attending Dr. Eid in the unit, full report given to Dr. Eid. see order history for new orders. Dr. Mccloud at bedside assessing patient.
[2019-11-01] MEDS ORDERED: IV NORMAL SALINE 500 ML IV ONE ×4 (09:30→18:15)
--- NOTE | 2019-11-01 09:36 | NUR ---
Pulmonary services Dr. Askew in the unit, full report given to Dr. Askew. See order history for new orders. Dr. Askew at bedside assessing patient.
[2019-11-01] MEDS: ENOXAPARIN SODIUM 40 MG/0.4 ML DISP.SYRIN SQ SCH (09:41)
[2019-11-01] MEDS ORDERED: IV NORMAL SALINE 1000 ML BAG IV ONE ×2 (10:20)
[2019-11-01] MEDS ORDERED: diphenhydrAMINE 50 MG/1 ML VIAL IM ONE (10:20)
[2019-11-01] MEDS ORDERED: SUCCINYLCHOLINE CHLORIDE 200 MG/10 ML VIAL IV ONE (10:20)
[2019-11-01] MEDS ORDERED: VECURONIUM BROMIDE 10 MG VIAL IV ONE (10:20)
[2019-11-01] MEDS ORDERED: ESMOLOL HCL 100 MG/10 ML VIAL IV ONE (10:20)
[2019-11-01] MEDS ORDERED: ETOMIDATE 20 MG/10 ML VIAL IV ONE (10:20)
[2019-11-01] MEDS ORDERED: ONDANSETRON 4 MG/2 ML VIAL IV ONE (10:20)
[2019-11-01] MEDS ORDERED: IV LACTATED RINGERS SOLUTION 1,000 ML BAG IV ONE (10:20)
[2019-11-01] MEDS ORDERED: SEVOFLURANE 250 ML BOTTLE IH ONE (10:20)
[2019-11-01] MEDS ORDERED: CEFAZOLIN 1 G VIAL IM ONE (10:20)
[2019-11-01] MEDS ORDERED: hydrALAZINE HCL 20 MG/1 ML VIAL IM ONE (10:20)
--- NOTE | 2019-11-01 14:10 | NUR ---
Spoke to Dr. Jeffers, full report given. see order history for new orders.
--- NOTE | 2019-11-01 15:00 | NUR ---
Cardiology services Dr. Elam in the unit, full report given to Dr. Crews. See order history for new orders. Dr. Crews at the bedside assessing the patient.
--- NOTE | 2019-11-01 19:01 | NUR ---
Abbie RICK from surgery in the unit, full report given to Abbie RICK. See order history for new orders. Abbie RICK at bedside assessing patient.
--- NOTE | 2019-11-01 19:56 | NUR ---
Pt rec'd on Ga settings AC 14, VT 550, FIO2-30% and PEEP +5. No resp. distress noted. 7.0 ETT is at approx. 20cm now at the left side of the pt's mouth. Ga alarm parameters have been checked and remain audible. Pt to be adm'd resp neb txs per MD orders, monitored throughout the shift and PRN SX.
--- NOTE | 2019-11-01 20:30 | NUR ---
URINE SEND TO THE LAB FOR URINALYSIS.
[2019-11-01] MEDS ORDERED: FAMOTIDINE. 20 MG/2 ML VIAL IV SCH ×2 (21:00)
[2019-11-01] MEDS ORDERED: FUROSEMIDE 40 MG/4 ML VIAL IV ONE (22:30)
--- NOTE | 2019-11-01 22:30 | NUR ---
TURNED AND REPOSITION PATIENT ,SUCTION VIA ETT AND VIA MOUTH ORAL CARE DONE AND FOLLOW CARE DONE , ELEVATED UPPER AND LOWER EXTREMITIES WITH PILLOW . HEELS OFF BED .
--- NOTE | 2019-11-01 22:38 | NUR ---
GIVEN TYLENOL SUPPOSITORY C/O TEMP 100.8 AND ICE PACKS APPLIED TO BILATERAL ARMPIT .
--- NOTE | 2019-11-01 22:59 | NUR ---
DR: DOUGIE ARELLANO CALLED INFORMED URINE OUTPUT FORM 7PM ONLY 60 ML WITH ORDERS TO GIVE LASIX 60 MG IVP.
[2019-11-02] VITALS (89 sets, daily range): BP systolic 91–126; BP diastolic 34–86
--- NOTE | 2019-11-02 | NUR ---
URINARY OUTPUT AFTER LASIX 300 ML WILL CONTINUE TO MONITOR .
--- NOTE | 2019-11-02 | NUR ---
CVP READING 12 TO 15.
[2019-11-02] MEDS: PROPOFOL 100 ML IV PRN ×5 (00:05→22:29)
[2019-11-02] MEDS: IV LACTATED RINGERS SOLUTION 1,000 ML IV PRN ×4 (00:10→21:47)
[2019-11-02] MEDS: IPRATROPIUM BROMIDE 0.5 MG/2.5 ML NEBU NEB SCH ×4 (01:13→20:14)
--- NOTE | 2019-11-02 04:30 | NUR ---
BATH PATIENT USED COLD WATER C/O TEMP 101.5,CHANGED SOILED LINENS AND GOWN . ORAL CARE DONE AND SUCTION VIA ETT AND VIA ORAL . F/C DONE .
[2019-11-02 05:14] LABS: BASOPHILS % (AUTO) 0.1 % (0.0-2.0); EOSINOPHILS # (AUTO) 0.1 K/uL (0.0-0.7); EOSINOPHILS % (AUTO) 0.5 % (0.0-7.0); HEMATOCRIT 38.5 % (31.2-41.9); LYMPHOCYTES % (AUTO) 9.9 % (20.5-51.5); MEAN CORPUSCULAR HEMOGLOBIN 33.4 uug (24.7-32.8); MEAN CORPUSCULAR HGB CONC 34 g/dL (32.3-35.6); MEAN CORPUSCULAR VOLUME 98.9 fL (75.5-95.3); MONOCYTES % (AUTO) 9.5 % (0.0-11.0); NEUTROPHILS # (AUTO) 8.3 K/uL (1.8-8.9); PLATELET COUNT (AUTO) 177 K/uL (179-408); RED BLOOD CELL COUNT(AUTO) 3.89 MIL/uL (3.63-4.92); WHITE BLOOD COUNT (AUTO) 10.4 K/uL (3.8-11.8)
[2019-11-02 05:23] LABS: CREATININE 1.7 mg/dL (0.6-1.3); MAGNESIUM 2.2 mg/dL (1.8-2.4); PHOSPHOROUS 2.9 mg/dL (2.5-4.9); POTASSIUM 3.3 mmol/L (3.5-5.1)
[2019-11-02] MEDS: PIPERACILLIN SODIUM/TAZOBACTAM 3.375 G in IV DEXTROSE 5% 50 ML IV SCH ×3 (05:28→21:46)
[2019-11-02] MEDS: ALBUTEROL SULFATE 2.5 MG/ 0.5 ML NEBU NEB PRN ×3 (07:43→20:15)
[2019-11-02 08:59] LABS: ABG BASE EXCESS 0.2 mmol/L; ABG HCO3 23.8 mmol/L; ABG PCO2 34.8 mmHg (35.0-45.0); ABG PH 7.452 (7.350-7.450); ABG PO2 45.4 mmHg (75.0-100.0); ABG SITE RIGHT RADIAL; ABG TOTAL HEMOGLOBIN 12.6 G/dL (12.0-16.0); MetHb 0.5 % (0.0-1.5); O2Hb 79.8 % (94.0-97.0); VENT MODE VENT - CPAP - PS 8
[2019-11-02] MEDS: FLUTICASONE/VILANTEROL 1 EACH BLST.W.DEV INH SCH (09:00)
[2019-11-02] MEDS: ENOXAPARIN SODIUM 40 MG/0.4 ML DISP.SYRIN SQ SCH (09:01)
--- NOTE | 2019-11-02 09:22 | NUR ---
Pulmonary services Dr. Askew in the unit, full report given to Dr. Askew. See order history for new orders. Dr. Askew at bedside assessing patient.
--- NOTE | 2019-11-02 11:10 | NUR ---
Attending MD Dr. Brown in the unit, full report given to Dr. Brown. See order history for new orders. Dr. brown at bedside assessing the patient
--- NOTE | 2019-11-02 11:30 | NUR ---
Cardiology services Dr. Crews in the unit, full report given to Dr. Crews. See oder history for new orders. Dr. Crews at the bedside assessing patient.
[2019-11-02] MEDS ORDERED: POTASSIUM CHLORIDE 50 ML IV SCH (11:45)
--- NOTE | 2019-11-02 14:00 | NUR ---
Abbie RICK from surgery in the unit, full report given to Abbie RICK. See order history for new orders. Abbie RICK at bedside assessing patient.
--- NOTE | 2019-11-02 20:00 | NUR ---
PRABHJOT AVILES came and updated with patient condition . see orders
--- NOTE | 2019-11-02 20:42 | NUR ---
blood cultures collected x2 15 minutes apart .
--- NOTE | 2019-11-02 22:00 | NUR ---
cvp reading 6 to 8 .
[2019-11-03] VITALS (25 sets, daily range): BP systolic 86–155; BP diastolic 54–111
--- NOTE | 2019-11-03 | NUR ---
afebrile . 99.0 axillary , turned and reposition patient . offloaded back with pillow and heels off bed .scds used to bilateral lower extremities . patient grimaces when turned , with draws to light pain ,but doesn't follow commands .
[2019-11-03] MEDS: ALBUTEROL SULFATE 2.5 MG/ 0.5 ML NEBU NEB PRN ×3 (00:32→14:05)
[2019-11-03] MEDS: IPRATROPIUM BROMIDE 0.5 MG/2.5 ML NEBU NEB SCH ×4 (00:32→19:43)
[2019-11-03] MEDS: IV LACTATED RINGERS SOLUTION 1,000 ML IV PRN ×3 (04:09→18:10)
[2019-11-03] MEDS: PROPOFOL 100 ML IV PRN (04:17)
[2019-11-03] MEDS: PIPERACILLIN SODIUM/TAZOBACTAM 3.375 G in IV DEXTROSE 5% 50 ML IV SCH ×3 (05:32→21:36)
[2019-11-03 05:33] LABS: CREATININE 0.9 mg/dL (0.6-1.3); MAGNESIUM 2.1 mg/dL (1.8-2.4); PHOSPHOROUS 2.8 mg/dL (2.5-4.9); POTASSIUM 2.9 mmol/L (3.5-5.1)
[2019-11-03 05:47] LABS: BASOPHILS % (AUTO) 0.2 % (0.0-2.0); EOSINOPHILS # (AUTO) 0.1 K/uL (0.0-0.7); EOSINOPHILS % (AUTO) 0.8 % (0.0-7.0); HEMATOCRIT 28.4 % (31.2-41.9); HEMOGLOBIN 9.7 g/dL (10.9-14.3); LYMPHOCYTES # (AUTO) 0.6 K/uL (20.0-40.0); LYMPHOCYTES % (AUTO) 8.5 % (20.5-51.5); MEAN CORPUSCULAR HEMOGLOBIN 34.3 uug (24.7-32.8); MEAN CORPUSCULAR HGB CONC 34 g/dL (32.3-35.6); MONOCYTES # (AUTO) 0.5 K/uL (2.0-10.0); MONOCYTES % (AUTO) 7.3 % (0.0-11.0); NEUTROPHILS # (AUTO) 5.9 K/uL (1.8-8.9); NEUTROPHILS % (AUTO) 83.2 % (38.5-71.5); PLATELET COUNT (AUTO) 130 K/uL (179-408); RED BLOOD CELL COUNT(AUTO) 2.84 MIL/uL (3.63-4.92); WHITE BLOOD COUNT (AUTO) 7.1 K/uL (3.8-11.8)
--- NOTE | 2019-11-03 07:40 | NUR ---
Received pt. on 40mcg/kg propofol. patient responsive to name and with oral care pt. restless and agitated with oral suctioning moderate amounts of stomach content suctioned. Patient coughing and gagging.
--- NOTE | 2019-11-03 08:00 | NUR ---
Patient placed on CPAP psv 8
--- NOTE | 2019-11-03 08:09 | NUR ---
For weaning purposes propofol titrated down to 25mcg/kg/min. patient noted to be slightly restless, and agitated.
[2019-11-03] MEDS: FLUTICASONE/VILANTEROL 1 EACH BLST.W.DEV INH SCH (08:45)
[2019-11-03] MEDS: PANTOPRAZOLE SODIUM 40 MG VIAL IV SCH (08:46)
[2019-11-03] MEDS: ENOXAPARIN SODIUM 40 MG/0.4 ML DISP.SYRIN SQ SCH (08:47)
[2019-11-03 09:34] LABS: ABG BASE EXCESS 1.9 mmol/L; ABG HCO3 23.1 mmol/L; ABG PCO2 25.4 mmHg (35.0-45.0); ABG PH 7.576 (7.350-7.450); ABG PO2 107.6 mmHg (75.0-100.0); ABG SITE RIGHT RADIAL; ABG TOTAL HEMOGLOBIN 10.3 G/dL (12.0-16.0); COHb 0.4 % (0.5-1.5); MetHb 0.4 % (0.0-1.5); O2Hb 97.8 % (94.0-97.0); VENT MODE VENT - CPAP - PS 8
--- NOTE | 2019-11-03 09:39 | NUR ---
PROPOFOL off at this time with Emt Basic in the unit and with ABG results orders to extubate pt. received. Patient remains with moderate amount of stomach content been suctioned throughout the mouth.
[2019-11-03] MEDS ORDERED: DC PROPOFOL ONCE EXTUBATED XX PRN (09:45)
--- NOTE | 2019-11-03 09:50 | NUR ---
With pulmonary physician in the unit patient extubated and placed in NC 3L. saturation remains above desired limits. No tachypnea, or sob noted.
[2019-11-03] MEDS: HYDROMORPHONE 2 MG/1 ML DISP.SYRIN IV PRN ×5 (10:04→23:40)
[2019-11-03] MEDS: ONDANSETRON 4 MG/2 ML VIAL IV PRN ×2 (10:04→22:13)
[2019-11-03] MEDS: POTASSIUM CHLORIDE 50 ML IV SCH ×4 (10:05→12:59)
[2019-11-03] MEDS: LORAZEPAM 2 MG/1 ML VIAL IV PRN ×2 (10:40→17:31)
--- NOTE | 2019-11-03 12:41 | NUR ---
Patient remains restless, confused and agitated, and at this time manage to remove her NG tube, and remove part of midline abdominal dressing. NG reinserted and placement confirmation orders PP.
--- NOTE | 2019-11-03 12:52 | NUR ---
A call for Suellen Freeman for an overall update on pt's current condition. Telephone report given, no new orders received.
[2019-11-03] MEDS ORDERED: FLEET ENEMA 133 ML BOTTLE RC ONE (17:15)
--- NOTE | 2019-11-03 17:26 | NUR ---
Patient remains restless and agitated and this time talking to a man in the room (Hallucinating). Attempting to get out of bed unsupervised. Attending notified orders received.
[2019-11-03 17:56] LABS: CREATININE 0.7 mg/dL (0.6-1.3); POTASSIUM 3.2 mmol/L (3.5-5.1)
[2019-11-03] MEDS ORDERED: HYDROMORPHONE 2 MG/1 ML DISP.SYRIN IM ONE (19:15)
[2019-11-03] MEDS: diphenhydrAMINE 50 MG/1 ML VIAL IV PRN (19:16)
--- NOTE | 2019-11-03 19:30 | NUR ---
Report received. Patient restless, trying to get out of bed. Oriented to name only. C/o pain, speaking both in Vietnamese and Tajik. Reoriented to place and time. On room air; saturations good. With bilateral mittens for safety. Fall precautions maintained. Dr. Kline called back; informed of patient's restlessness and c/o pain. No new orders.
--- NOTE | 2019-11-03 21:16 | NUR ---
Sitting up in bed; trying to remove mittens; explained importance and plan of care discussed. "I want to go home." Patient stated. Patient's father called; made aware of patient's condition. Patient monitored closely.
[2019-11-04] VITALS (16 sets, daily range): BP systolic 81–147; BP diastolic 58–95
[2019-11-04] MEDS: LORAZEPAM 2 MG/1 ML VIAL IV PRN ×4 (00:05→20:23)
[2019-11-04] MEDS: IPRATROPIUM BROMIDE 0.5 MG/2.5 ML NEBU NEB SCH ×4 (00:30→19:43)
[2019-11-04] MEDS: IV LACTATED RINGERS SOLUTION 1,000 ML IV PRN ×2 (01:16→07:55)
[2019-11-04] MEDS: diphenhydrAMINE 50 MG/1 ML VIAL IV PRN ×3 (01:54→16:49)
--- NOTE | 2019-11-04 04:10 | NUR ---
Still mildly restless on and off. Reoriented PRN. Medicated with Dilaudid for pain. BPs stable. Addendum: 11/04/19 at 0425 by TED ENCISO RN Amended: Links added.
[2019-11-04] MEDS: HYDROMORPHONE 2 MG/1 ML DISP.SYRIN IV PRN ×5 (04:11→22:44)
[2019-11-04 05:02] LABS: LYMPHOCYTES # (AUTO) 0.6 K/uL (20.0-40.0); MONOCYTES # (AUTO) 0.3 K/uL (2.0-10.0); NEUTROPHILS # (AUTO) 0.8 K/uL (1.8-8.9)
[2019-11-04 05:04] LABS: BASOPHILS % (AUTO) 0.2 % (0.0-2.0); EOSINOPHILS # (AUTO) 0.1 K/uL (0.0-0.7); EOSINOPHILS % (AUTO) 2.8 % (0.0-7.0); HEMATOCRIT 24.9 % (31.2-41.9); HEMOGLOBIN 8.5 g/dL (10.9-14.3); LYMPHOCYTES % (AUTO) 32.7 % (20.5-51.5); MEAN CORPUSCULAR HEMOGLOBIN 33.9 uug (24.7-32.8); MEAN CORPUSCULAR HGB CONC 34 g/dL (32.3-35.6); MEAN CORPUSCULAR VOLUME 99.5 fL (75.5-95.3); MONOCYTES % (AUTO) 16.7 % (0.0-11.0); NEUTROPHILS % (AUTO) 47.6 % (38.5-71.5); PLATELET COUNT (AUTO) 107 K/uL (179-408); RED BLOOD CELL COUNT(AUTO) 2.51 MIL/uL (3.63-4.92)
[2019-11-04 05:09] LABS: WHITE BLOOD COUNT (AUTO) 1.8 K/uL (3.8-11.8)
[2019-11-04 05:17] LABS: CREATININE 0.6 mg/dL (0.6-1.3); MAGNESIUM 1.9 mg/dL (1.8-2.4); PHOSPHOROUS 2.6 mg/dL (2.5-4.9); POTASSIUM 2.9 mmol/L (3.5-5.1)
[2019-11-04] MEDS: PIPERACILLIN SODIUM/TAZOBACTAM 3.375 G in IV DEXTROSE 5% 50 ML IV SCH ×3 (05:23→22:12)
--- NOTE | 2019-11-04 06:29 | NUR ---
VS stable. Hardly slept during the night despite pain medication Q4H. Ativan IV given @ 0552 per patient's request. Turned and repositioned with minimal assistance. Remains on room air; saturations above 94%. Abdominal dressing dry and intact. With large amounts of green gastric secretions from NGT. Urine output 1300 ml x 12 H. Main IVF infusing at 150ml/H via RIJ TLC. Addendum: 11/04/19 at 0631 by TED ENCISO RN Amended: Links added.
--- NOTE | 2019-11-04 07:15 | NUR ---
Received report from fast food shift supervisor nurse, patient in bed asleep, no distress noted at this time, bed in low position, side rails up x2. Mittens on for safety, and patient is on room air. Patients is sinus rhythm on the monitor. Huynh draining clear yellow urine.
[2019-11-04] MEDS: ALBUTEROL SULFATE 2.5 MG/ 0.5 ML NEBU NEB PRN ×2 (07:43→13:50)
[2019-11-04] MEDS: PANTOPRAZOLE SODIUM 40 MG VIAL IV SCH (08:26)
[2019-11-04 08:28] LABS: ABG BASE EXCESS -0.3 mmol/L; ABG HCO3 22.7 mmol/L; ABG PCO2 31.5 mmHg (35.0-45.0); ABG PH 7.476 (7.350-7.450); ABG PO2 48.8 mmHg (75.0-100.0); ABG SITE RIGHT RADIAL; ABG TOTAL HEMOGLOBIN 10.4 G/dL (12.0-16.0); COHb 1.4 % (0.5-1.5); MetHb 0.2 % (0.0-1.5); O2Hb 83.7 % (94.0-97.0); VENT MODE Room Air
[2019-11-04] MEDS: ENOXAPARIN SODIUM 40 MG/0.4 ML DISP.SYRIN SQ SCH (08:32)
[2019-11-04] MEDS: FLUTICASONE/VILANTEROL 1 EACH BLST.W.DEV INH SCH (09:00)
[2019-11-04] MEDS: POTASSIUM CHLORIDE 50 ML IV SCH ×6 (09:15→14:46)
--- NOTE | 2019-11-04 10:00 | NUR ---
Discussed patient BP with Dr. Eid, patient recently received Dilauded and BP temporarily decreased but patient alert.
[2019-11-04 10:01] LABS: BAND % (MANUAL) 1 % (0-10); EOSINOPHILS % (MANUAL) 3 % (0-8); LYMPHOCYTES % (MANUAL) 38 % (20-40); MONOCYTES % (MANUAL) 13 % (2-10); NEUTROPHILS % (MANUAL) 45 % (42-75)
[2019-11-04] MEDS: ONDANSETRON 4 MG/2 ML VIAL IV PRN ×3 (12:31→22:48)
--- NOTE | 2019-11-04 12:38 | NUR ---
Report given to Jessy, and patient transferred to Telemetry floor by nurse.
--- NOTE | 2019-11-04 12:40 | NUR ---
Patient was transferred from CCU to Telemetry room 312. Patient is awake, alert and verbally responsive. No signs of distress noted. No SOB. On Oxygen at 2L via Nasal canula, saturating 97%. Patient is NPO. NGT intact and on Low intermittent suctioning. Huynh catheter draining with clear yellow Urine. IVF infusing well, patient still receiving Potassium Chloride IV 4th bag with total of 6 bags. kept clean and comfortable. Will continue to monitor.
[2019-11-04] MEDS: POTASSIUM CHLORIDE 40 MEQ in IV D5/ 0.9% NACL 1,000 ML IV PRN (15:35)
[2019-11-04 16:01] LABS: BASOPHILS % (AUTO) 0.1 % (0.0-2.0); EOSINOPHILS % (AUTO) 0.2 % (0.0-7.0); HEMATOCRIT 28.1 % (31.2-41.9); HEMOGLOBIN 9.5 g/dL (10.9-14.3); LYMPHOCYTES # (AUTO) 0.5 K/uL (20.0-40.0); LYMPHOCYTES % (AUTO) 14.1 % (20.5-51.5); MEAN CORPUSCULAR HEMOGLOBIN 33.6 uug (24.7-32.8); MEAN CORPUSCULAR HGB CONC 34 g/dL (32.3-35.6); MEAN CORPUSCULAR VOLUME 99.1 fL (75.5-95.3); MONOCYTES # (AUTO) 0.3 K/uL (2.0-10.0); MONOCYTES % (AUTO) 8.2 % (0.0-11.0); NEUTROPHILS # (AUTO) 2.7 K/uL (1.8-8.9); NEUTROPHILS % (AUTO) 77.4 % (38.5-71.5); PLATELET COUNT (AUTO) 129 K/uL (179-408); RED BLOOD CELL COUNT(AUTO) 2.84 MIL/uL (3.63-4.92)
[2019-11-04 16:09] LABS: WHITE BLOOD COUNT (AUTO) 3.5 K/uL (3.8-11.8)
[2019-11-04 16:10] LABS: CREATININE 0.7 mg/dL (0.6-1.3); POTASSIUM 3.4 mmol/L (3.5-5.1)
[2019-11-04] MEDS: ACETAMINOPHEN 650 MG SUPP.RECT RC PRN (22:37)
[2019-11-05] VITALS: BP 112/71
[2019-11-05] MEDS: IPRATROPIUM BROMIDE 0.5 MG/2.5 ML NEBU NEB SCH ×4 (00:30→19:40)
[2019-11-05] MEDS: ALBUTEROL SULFATE 2.5 MG/ 0.5 ML NEBU NEB PRN (00:30)
[2019-11-05] MEDS: diphenhydrAMINE 50 MG/1 ML VIAL IV PRN ×4 (00:52→23:08)
[2019-11-05] MEDS: LORAZEPAM 2 MG/1 ML VIAL IV PRN ×2 (03:31→10:33)
[2019-11-05 04:00] VITALS: BP 108/62
[2019-11-05] MEDS: PIPERACILLIN SODIUM/TAZOBACTAM 3.375 G in IV DEXTROSE 5% 50 ML IV SCH ×3 (05:08→21:13)
[2019-11-05] MEDS: HYDROMORPHONE 2 MG/1 ML DISP.SYRIN IV PRN ×4 (05:09→21:13)
[2019-11-05 05:39] LABS: BASOPHILS % (AUTO) 0.2 % (0.0-2.0); EOSINOPHILS % (AUTO) 0.9 % (0.0-7.0); HEMATOCRIT 30.2 % (31.2-41.9); HEMOGLOBIN 10.3 g/dL (10.9-14.3); LYMPHOCYTES # (AUTO) 0.6 K/uL (20.0-40.0); LYMPHOCYTES % (AUTO) 16.6 % (20.5-51.5); MEAN CORPUSCULAR HEMOGLOBIN 33.8 uug (24.7-32.8); MEAN CORPUSCULAR HGB CONC 34 g/dL (32.3-35.6); MEAN CORPUSCULAR VOLUME 98.7 fL (75.5-95.3); MONOCYTES # (AUTO) 0.4 K/uL (2.0-10.0); MONOCYTES % (AUTO) 10.1 % (0.0-11.0); NEUTROPHILS # (AUTO) 2.6 K/uL (1.8-8.9); NEUTROPHILS % (AUTO) 72.2 % (38.5-71.5); PLATELET COUNT (AUTO) 151 K/uL (179-408); RED BLOOD CELL COUNT(AUTO) 3.06 MIL/uL (3.63-4.92); WHITE BLOOD COUNT (AUTO) 3.7 K/uL (3.8-11.8)
[2019-11-05] MEDS: ONDANSETRON 4 MG/2 ML VIAL IV PRN ×2 (05:46→21:31)
[2019-11-05 05:48] LABS: CREATININE 0.6 mg/dL (0.6-1.3); MAGNESIUM 1.7 mg/dL (1.8-2.4); PHOSPHOROUS 3.1 mg/dL (2.5-4.9); POTASSIUM 2.9 mmol/L (3.5-5.1)
--- NOTE | 2019-11-05 06:26 | NUR ---
Patient slept intermittently. Noted w/ episodes of restlessness and constantly calling. On O2 at 2lpm via NC, saturating at 97%. SR on Tele monitor. On NGT connected to low intermittent suction noted w/ green secretions. Patient medicated w/ PRN Dilaudid 2mg IV for pain and Zofran 4mg IV for n/v. F/C intact draining clear yellow urine. All needs attended. Will endorse accordingly Addendum: 11/05/19 at 0652 by DONAVAN KEITH RN On bilateral mittens to prevent pulling of NGT
--- NOTE | 2019-11-05 07:40 | NUR ---
received on bilateral mittens to prevent pulling of the NGT connected to low intermittent suction. drasining with scant greenish drainage.
[2019-11-05] MEDS: POTASSIUM CHLORIDE 40 MEQ in IV D5/ 0.9% NACL 1,000 ML IV PRN ×3 (08:34→21:13)
[2019-11-05] MEDS: PANTOPRAZOLE SODIUM 40 MG VIAL IV SCH (08:34)
[2019-11-05] MEDS: ENOXAPARIN SODIUM 40 MG/0.4 ML DISP.SYRIN SQ SCH (08:36)
[2019-11-05] MEDS: FLUTICASONE/VILANTEROL 1 EACH BLST.W.DEV INH SCH (08:39)
--- NOTE | 2019-11-05 08:50 | NUR ---
Dr Eid in and gave orders, sleeping intermittently
[2019-11-05] MEDS: POTASSIUM CHLORIDE 10 MEQ, LIDOCAINE-MPF 1% 1 ML in IV DEXTROSE 5% 100 ML IV SCH ×4 (10:13→13:30)
--- NOTE | 2019-11-05 10:40 | NUR ---
patient noted to be retless and anxious lorazepam 1 mg ivp given as needed for anxiety.vital signs checked and recorded.krider on flow afirst bag at 100 ml/hour
[2019-11-05 11:27] VITALS: BP 127/74
--- NOTE | 2019-11-05 12:27 | NUR ---
patient is on untied mittens but was able to remove the ngt. and removed the mittens. will inform the physician about it
--- NOTE | 2019-11-05 12:49 | NUR ---
Dr Jeffers called and informed that the patient has pulled on her ngt and that the patient is mostly complaining of nausea and pain. with orders okay not to put the ngt back . with orders for saline enema 300 ml x 1 now Addendum: 11/05/19 at 1303 by ALYCE ELIZABETH RN small amount of ice chips. still npo.
[2019-11-05] MEDS: MAGNESIUM SULFATE/D5W 100 ML IV SCH ×4 (13:57→17:41)
[2019-11-05 16:36] VITALS: BP 137/90
--- NOTE | 2019-11-05 17:30 | NUR ---
patient attempted to get out of bed and was able to pull on the marie catheter in the process. sali
--- NOTE | 2019-11-05 18:50 | NUR ---
Dr Eid called back and informed that the patient is in constant pain in the operative site and even with dialudid dose. was able to pull on her marie catheter, and with orders okay to not reinsert the marie catheter and onserve the patient for voiding. dilaudid dose wad ordered discontinued and and change to morphine 4 mg every 4 hours as needed for pain. reglan 10 mg ivp every [address] Jeffers called to inform the the patient had no bm and the enema is not effective.
--- NOTE | 2019-11-05 18:54 | NUR ---
patient has allergy to morphine and cannot be given. Dr Eid paged for the morphone cannot be ordered. awaiting response. will observe patient for voiding
--- NOTE | 2019-11-05 19:13 | NUR ---
kassidyudid 2 mg ivp given as morphine order cannot be ordered patient has allergy to morphine.awaiting for Dr Eid to call back
[2019-11-05] MEDS ORDERED: hydrALAZINE HCL 20 MG/1 ML VIAL IV PRN (20:00)
--- NOTE | 2019-11-05 20:00 | NUR ---
Mid-line and IJ were flushed, vacant ports were locked.
[2019-11-05 20:07] VITALS: BP 141/73
--- NOTE | 2019-11-05 20:12 | NUR ---
SPOKE WITH DR MONTENEGRO. ORDERED: HYDRALAZINE 10MG IV Q4 PRN FOR SBP OVER 150, DILAUDID IV 2MG Q4H PRN FOR PAIN 8-10, BLADDER SCAN IF NO URINE IN OVER 4 HOURS, INSERT STRAIGHT BLADER CATHETER IF MORE THAN 400ML OF URINE ON THE SCAN.
--- NOTE | 2019-11-05 22:30 | NUR ---
dr Eid spoke with Abbie Wu Np, she will change the original surgical dressing on 11/05 in the morning.
[2019-11-06] MEDS: LORAZEPAM 2 MG/1 ML VIAL IV PRN ×4 (00:33→22:12)
[2019-11-06 00:40] VITALS: BP 123/78
[2019-11-06] MEDS: IPRATROPIUM BROMIDE 0.5 MG/2.5 ML NEBU NEB SCH ×4 (00:41→19:33)
[2019-11-06] MEDS: ALBUTEROL SULFATE 2.5 MG/ 0.5 ML NEBU NEB PRN ×2 (00:41→13:33)
--- NOTE | 2019-11-06 01:22 | NUR ---
patient urinated 3-4 times so far on this shift. Asked to use the bed lucia just now. Urinated approx. 200ml.
[2019-11-06] MEDS: HYDROMORPHONE 2 MG/1 ML DISP.SYRIN IV PRN ×6 (04:00→23:59)
[2019-11-06] MEDS: POTASSIUM CHLORIDE 40 MEQ in IV D5/ 0.9% NACL 1,000 ML IV PRN ×3 (05:03→23:45)
[2019-11-06] MEDS: PIPERACILLIN SODIUM/TAZOBACTAM 3.375 G in IV DEXTROSE 5% 50 ML IV SCH ×3 (05:03→21:27)
[2019-11-06 05:04] VITALS: BP 121/79
[2019-11-06] MEDS: diphenhydrAMINE 50 MG/1 ML VIAL IV PRN ×2 (05:45→15:32)
--- NOTE | 2019-11-06 08:00 | NUR ---
Plan of care implemented for fall precaution, pain management 2nd to SBO post Exp lap, managed n/v, and keep pt NPO status. IJ access and right upper midline. intact. IVF infusing as ordered.
[2019-11-06] MEDS: FLUTICASONE/VILANTEROL 1 EACH BLST.W.DEV INH SCH (08:59)
[2019-11-06] MEDS: ENOXAPARIN SODIUM 40 MG/0.4 ML DISP.SYRIN SQ SCH (09:01)
[2019-11-06] MEDS: PANTOPRAZOLE SODIUM 40 MG VIAL IV SCH (09:03)
--- NOTE | 2019-11-06 10:00 | NUR ---
Pt awake alert and oriented x [address] and that she had a major surgery on her abdomen. Physical therapy to see pt will plan to premedicate pain med prior.
--- NOTE | 2019-11-06 11:30 | NUR ---
Physical therapy successful. Pt participated and tolerated.
[2019-11-06 11:51] LABS: CREATININE 0.6 mg/dL (0.6-1.3); POTASSIUM 3.8 mmol/L (3.5-5.1)
[2019-11-06 12:00] VITALS: BP 120/75
--- NOTE | 2019-11-06 12:00 | NUR ---
POD#6 today. PT seen by EUNICE LATIF surgery here to see pt. Assist with dressing change. PUMP AND BLOWER OPERATOR applied triple abx to surgical incision line , no redness noted. Surgical incision is held together by yuri and x 3 sutures across abd with big red gauged skin protector for the suture at midline. Incision then covered with 4x4 then abd pad and anchored by paper tape. Dressing is to be changed if soiled. Pt tolerated procedure of PUMP AND BLOWER OPERATOR. PT is to have an appt with surgical team eunice Wu @ POD #12 next week.
[2019-11-06] MEDS ORDERED: NEOMY/BACITRAC/POLYMI OINT 28.35 GM TUBE TOP PRN (12:45)
[2019-11-06] MEDS: ONDANSETRON 4 MG/2 ML VIAL IV PRN ×2 (13:41→22:35)
[2019-11-06 16:00] VITALS: BP 131/47
[2019-11-06] MEDS ORDERED: MISCELLANEOUS MED PO SCH (17:00)
--- NOTE | 2019-11-06 18:30 | NUR ---
Pt pain managed with Dilaudid x2, zofran x 1 , and Benadryl given this shift. Pt is more awake however pt is incontinent and bedding changed x 4 with soaked linens. Pt comfortable in bed. Plan of care effective no fall noted this shift. Call light is within reach.
--- NOTE | 2019-11-06 19:40 | NUR ---
Received patient restless, anxious, complaining of pain on the abdomen incision, with big dressing, dry and intact. Instructed patient to take a deep breathing exercises, relax and try to calm down. Turned and repositioned for comfort. Good skin and rhonda care rendered. Safety measures and fall precaution maintained. Continue care as planned.
[2019-11-06 20:00] VITALS: BP 132/68
--- NOTE | 2019-11-06 21:05 | NUR ---
Complaining of severe mid abdominal incision pain in scale of 10/10. Dilaudid 2 mg IVP given as ordered and needed. Will monitor therapeutic effect.
--- NOTE | 2019-11-06 22:15 | NUR ---
So restless, cannot sit/lay still, trying to get out of bed. Ativan given as needed. Will continue to monitor.
--- NOTE | 2019-11-06 22:35 | NUR ---
Throwing up small amount of emesis white in color, Zofran given as needed and as ordered. Will monitor.
--- NOTE | 2019-11-06 23:05 | NUR ---
No further N/V presented. Zofran effective.
[2019-11-07] VITALS: BP 128/65
[2019-11-07] MEDS: IPRATROPIUM BROMIDE 0.5 MG/2.5 ML NEBU NEB SCH ×4 (00:31→19:38)
[2019-11-07] MEDS: HYDROMORPHONE 2 MG/1 ML DISP.SYRIN IV PRN ×6 (02:33→22:45)
[2019-11-07] MEDS: ONDANSETRON 4 MG/2 ML VIAL IV PRN (04:00)
[2019-11-07] MEDS: diphenhydrAMINE 50 MG/1 ML VIAL IV PRN ×3 (04:00→18:01)
[2019-11-07 04:39] VITALS: BP 123/75
[2019-11-07] MEDS: ACETAMINOPHEN 325 MG TABLET PO PRN ×2 (04:41→20:10)
[2019-11-07] MEDS: PIPERACILLIN SODIUM/TAZOBACTAM 3.375 G in IV DEXTROSE 5% 50 ML IV SCH ×2 (05:33→13:40)
--- NOTE | 2019-11-07 06:11 | NUR ---
Shift End Report: Vs stable. Slept fairly due to pain. Medicated 3x for complaint of mid abdominal pain incision site pain with mild relief. Zofran was given 2X for N/V. Ativan once for anxiety and Benadryl for itchiness. Tolerated continuos IVF as ordered with no s/s of infiltration on IV site. Good skin/rhonda care rendered after each incontinence. All needs attended and met. No significant event reported all night. Continue current plan of care.
--- NOTE | 2019-11-07 07:20 | NUR ---
RECEIVED PATIENT ASLEEP EASILY AROUSABLE ON ROUNDS REMAIN ON IVF ORDERED WITH NO S/S OF INFECTION ON SITE CALL LIGHTS AND PERSONAL BELONGINGS ARE WITHIN EASY REACH MADE COMFORTABLE WILL CONTINUE TO OBSERVE.
[2019-11-07] MEDS: POTASSIUM CHLORIDE 40 MEQ in IV D5/ 0.9% NACL 1,000 ML IV PRN ×2 (08:23→16:54)
[2019-11-07] MEDS: PANTOPRAZOLE SODIUM 40 MG VIAL IV SCH (08:24)
[2019-11-07] MEDS: FLUTICASONE/VILANTEROL 1 EACH BLST.W.DEV INH SCH (08:24)
[2019-11-07] MEDS: ENOXAPARIN SODIUM 40 MG/0.4 ML DISP.SYRIN SQ SCH (08:25)
--- NOTE | 2019-11-07 09:21 | NUR ---
C/O HAVING SEVERE ABDOMINAL PAIN MEDICATED WITH DILAUDID ORDERED MADE COMFORTABLE DRESSINGS REMAIN INTACT WITH NO DRAINAGE AT THIS TIME.
[2019-11-07 12:29] VITALS: BP 138/73
[2019-11-07] MEDS: LORAZEPAM 2 MG/1 ML VIAL IV PRN ×2 (13:00→20:39)
[2019-11-07 15:39] VITALS: BP 130/86
--- NOTE | 2019-11-07 17:31 | NUR ---
EUNICE WATERMAN UKE DRIVER HERE TO SEE PATIENT WITH NEW ORDERS AND NOTED
--- NOTE | 2019-11-07 18:00 | NUR ---
PATIENT CONTINUE TO REFUSE TO EAT THE CLEAR LIQUIDS DIET ORDERED TRIED TO FEED HER BUT SHE STATED NOT NOW NOT HUNGRY WILL EAT WHEN SHE IS READY CONTINUE TO REQUEST FOR PAIN MEDICATIONS EVERY 4 HOURS ORDERED WAS ABLE TO ASSIST PATIENT BACK INTO BED PATIENT WAS IN THE BATHROOM WENT IN THERE BY HERE SELF MADE COMFORTABLE AND REMINDED HER TO USE THE CALL LIGHT TO PREVENT FALLS AND SHE EXPRESSED UNDERSTANDING
--- NOTE | 2019-11-07 19:30 | NUR ---
RECEIVED PT AWAKE, ALERT AND ORIENTEDX3. PT IN NO ACUTE RESPIRATORY DISTRESS. IV INTACT. SAFETY AND COMFORT PROVIDED. PT ASKING FOR PAIN MEDICATION. WILL CONTINUE TO MONITOR.
[2019-11-07] MEDS: ALBUTEROL SULFATE 2.5 MG/ 0.5 ML NEBU NEB PRN (19:38)
[2019-11-07 20:00] VITALS: BP 149/85
[2019-11-08] VITALS: BP 141/96
[2019-11-08] MEDS: ONDANSETRON 4 MG/2 ML VIAL IV PRN (01:22)
[2019-11-08] MEDS: IPRATROPIUM BROMIDE 0.5 MG/2.5 ML NEBU NEB SCH ×4 (01:30→19:31)
[2019-11-08] MEDS: LORAZEPAM 2 MG/1 ML VIAL IV PRN ×4 (02:30→22:47)
[2019-11-08] MEDS: POTASSIUM CHLORIDE 40 MEQ in IV D5/ 0.9% NACL 1,000 ML IV PRN ×2 (02:42→18:22)
[2019-11-08] MEDS: HYDROMORPHONE 2 MG/1 ML DISP.SYRIN IV PRN ×5 (03:12→20:20)
[2019-11-08 04:00] VITALS: BP 136/76
[2019-11-08] MEDS: diphenhydrAMINE 50 MG/1 ML VIAL IV PRN ×4 (06:02→18:09)
--- NOTE | 2019-11-08 06:10 | NUR ---
PT SLEPT INTERMITTENTLY. PT IN NO ACUTE DISTRESS. IV INTACT. PT HAVE EPISODES OF GETTING OUT OF THE BED. PT WILL TURNED OFF THE ALARM AND PULL THE IV POLE. PT NEEDS REORIENTATION. PT GIVEN ATIVAN AT 2039H AND 0230H. PT RESTLESS, KEEP YELLING. PT CALM AFTER GIVEING THE MEDICATION. PT GIVEN BENADRYL AT 0000H and 0607h. PT GIVEN DILAUDID AT 2245H AND 0312H FOR PAIN. PT TOLERATED IT WELL. ZOFRAN GIVEN AT 0122H FOR NAUSEA. OBSERVED PT FIXATED ON HER MEDICATIONS. PRESCRIBED MEDICATION GIVEN AND PT TOLERATED IT WELL. SAFETY AND COMFORT PROVIDED.WILL ENDORSE TO INCOMING NURSE FOR CONTINUITY OF CARE.
[2019-11-08 06:13] LABS: BASOPHILS % (AUTO) 0.2 % (0.0-2.0); EOSINOPHILS # (AUTO) 0.1 K/uL (0.0-0.7); LYMPHOCYTES # (AUTO) 0.8 K/uL (20.0-40.0); MONOCYTES # (AUTO) 0.8 K/uL (2.0-10.0); MONOCYTES % (AUTO) 10.3 % (0.0-11.0); RED BLOOD CELL COUNT(AUTO) 3.15 MIL/uL (3.63-4.92)
[2019-11-08 06:29] LABS: CREATININE 0.7 mg/dL (0.6-1.3); MAGNESIUM 1.6 mg/dL (1.8-2.4); PHOSPHOROUS 2.7 mg/dL (2.5-4.9); POTASSIUM 3.9 mmol/L (3.5-5.1)
[2019-11-08 06:34] LABS: EOSINOPHILS % (AUTO) 1.2 % (0.0-7.0); HEMATOCRIT 30.8 % (31.2-41.9); HEMOGLOBIN 10.6 g/dL (10.9-14.3); LYMPHOCYTES % (AUTO) 10.9 % (20.5-51.5); MEAN CORPUSCULAR HEMOGLOBIN 33.6 uug (24.7-32.8); MEAN CORPUSCULAR HGB CONC 34 g/dL (32.3-35.6); MEAN CORPUSCULAR VOLUME 97.9 fL (75.5-95.3); NEUTROPHILS # (AUTO) 5.8 K/uL (1.8-8.9); NEUTROPHILS % (AUTO) 77.4 % (38.5-71.5)
[2019-11-08 06:35] LABS: PLATELET COUNT (AUTO) 286 K/uL (179-408); WHITE BLOOD COUNT (AUTO) 7.5 K/uL (3.8-11.8)
--- NOTE | 2019-11-08 07:14 | NUR ---
gave dialudid prn for abdominal pain. pt tolerated it well. endorse to incoming nurse.
[2019-11-08] MEDS: ALBUTEROL SULFATE 2.5 MG/ 0.5 ML NEBU NEB PRN (07:43)
--- NOTE | 2019-11-08 08:00 | NUR ---
Pt is in no acute distress. pain management, fall precaution implemented. Abd bowel sound is hypoactive. Call light is within reach.
[2019-11-08] MEDS: PANTOPRAZOLE SODIUM 40 MG VIAL IV SCH (08:53)
[2019-11-08] MEDS: ENOXAPARIN SODIUM 40 MG/0.4 ML DISP.SYRIN SQ SCH (08:53)
[2019-11-08] MEDS: FLUTICASONE/VILANTEROL 1 EACH BLST.W.DEV INH SCH (08:54)
[2019-11-08 12:00] VITALS: BP 134/80
[2019-11-08] MEDS: ACETAMINOPHEN 325 MG TABLET PO PRN (12:01)
[2019-11-08] MEDS: MIRALAX 17 GM POWD.PACK PO SCH (12:04)
[2019-11-08] MEDS: MAGNESIUM SULFATE/D5W 100 ML IV SCH ×2 (13:19→14:46)
[2019-11-08 16:08] VITALS: BP 130/79
--- NOTE | 2019-11-08 18:30 | NUR ---
No fall noted this shift. Pt's pain managed with dilaudid. PT is in no acute distress.
[2019-11-08] MEDS ORDERED: PIPERACILLIN SODIUM/TAZOBACTAM 3.375 G in IV DEXTROSE 5% 50 ML IV SCH (19:45)
[2019-11-08] MEDS ORDERED: BISACODYL 10 MG SUPP.RECT RC ONE (19:45)
[2019-11-08] MEDS: PIPERACILLIN/TAZOBACTAM/D5W 3.375 G in PREMIXED 1 EACH IV SCH (21:08)
[2019-11-08 21:38] VITALS: BP 138/10
[2019-11-09 00:23] VITALS: BP 129/70
[2019-11-09] MEDS: HYDROMORPHONE 2 MG/1 ML DISP.SYRIN IV PRN ×7 (01:29→22:52)
[2019-11-09] MEDS: POTASSIUM CHLORIDE 40 MEQ in IV D5/ 0.9% NACL 1,000 ML IV PRN ×2 (03:52→16:10)
[2019-11-09] MEDS: diphenhydrAMINE 50 MG/1 ML VIAL IV PRN ×3 (03:58→18:45)
[2019-11-09] MEDS: PIPERACILLIN/TAZOBACTAM/D5W 3.375 G in PREMIXED 1 EACH IV SCH ×3 (04:04→19:49)
[2019-11-09 05:12] VITALS: BP 134/83
--- NOTE | 2019-11-09 05:51 | NUR ---
DR. ROWLADN ORDERED FLEET ENEMA FOR PATIENT. WILL ADMINISTER. AAOX3. NO S/S OF ACUTE DISTRESS AND V/S STABLE. AFEBRILE. SINUS TACHYCARDIA ON TELE MONITOR. FALL PRECAUTIONS IN PLACE. ALL NEEDS MET AND MEDICATION ADMINISTERED. 1 SMALL WATERY BROWN BM. WILL CONTINUE TO MONITOR.
[2019-11-09] MEDS ORDERED: FLEET ENEMA 133 ML BOTTLE RC ONE (06:00)
[2019-11-09] MEDS: PANTOPRAZOLE SODIUM 40 MG TABLET.DR PO SCH (06:21)
[2019-11-09] MEDS: LORAZEPAM 2 MG/1 ML VIAL IV PRN ×3 (06:48→18:18)
[2019-11-09 07:41] LABS: BASOPHILS % (AUTO) 0.3 % (0.0-2.0); EOSINOPHILS # (AUTO) 0.1 K/uL (0.0-0.7); EOSINOPHILS % (AUTO) 0.8 % (0.0-7.0); HEMATOCRIT 30.9 % (31.2-41.9); HEMOGLOBIN 10.6 g/dL (10.9-14.3); LYMPHOCYTES % (AUTO) 9.6 % (20.5-51.5); MEAN CORPUSCULAR HEMOGLOBIN 33.9 uug (24.7-32.8); MEAN CORPUSCULAR HGB CONC 34 g/dL (32.3-35.6); MEAN CORPUSCULAR VOLUME 98.4 fL (75.5-95.3); MONOCYTES # (AUTO) 0.9 K/uL (2.0-10.0); MONOCYTES % (AUTO) 9.2 % (0.0-11.0); NEUTROPHILS # (AUTO) 8.1 K/uL (1.8-8.9); NEUTROPHILS % (AUTO) 80.1 % (38.5-71.5); PLATELET COUNT (AUTO) 345 K/uL (179-408); RED BLOOD CELL COUNT(AUTO) 3.13 MIL/uL (3.63-4.92); WHITE BLOOD COUNT (AUTO) 10.1 K/uL (3.8-11.8)
[2019-11-09 07:51] LABS: BILIRUBIN,TOTAL 0.4 mg/dL (0.2-1.0); CREATININE 0.7 mg/dL (0.6-1.3); MAGNESIUM 2.4 mg/dL (1.8-2.4); PHOSPHOROUS 3.6 mg/dL (2.5-4.9); POTASSIUM 3.8 mmol/L (3.5-5.1); TOTAL PROTEIN, SERUM 6.3 g/dL (6.4-8.2)
[2019-11-09 08:00] VITALS: BP 125/71
[2019-11-09 08:56] LABS: THYROID STIMULATING HORMONE 2.049 mIU/mL (0.358-3.740)
[2019-11-09] MEDS: ENOXAPARIN SODIUM 40 MG/0.4 ML DISP.SYRIN SQ SCH (09:35)
[2019-11-09] MEDS: MIRALAX 17 GM POWD.PACK PO SCH (09:35)
[2019-11-09] MEDS: FLUTICASONE/VILANTEROL 1 EACH BLST.W.DEV INH SCH (09:35)
[2019-11-09] MEDS ORDERED: BISACODYL 10 MG SUPP.RECT RC ONE (10:20)
[2019-11-09] MEDS ORDERED: SOD FERRIC GLUC COMPLX/SUCROSE 125 MG in IV NORMAL SALINE 100 ML IV ONE (11:00)
[2019-11-09] MEDS ORDERED: BISACODYL 10 MG SUPP.RECT RC PRN (14:00)
--- NOTE | 2019-11-09 14:00 | NUR ---
Dilaudid was accidentally thrown in bin before withdrawal from vial, this dose was wasted with GM, and additional dose was obtained to give to the patient. Pharmacist notified.
[2019-11-09] MEDS: ACETAMINOPHEN 325 MG TABLET PO PRN (15:16)
[2019-11-09] MEDS ORDERED: MINERAL OIL FLEET ENEMA 133 ML BOTTLE RC STA (15:25)
[2019-11-09 15:43] VITALS: BP 120/76
[2019-11-09 15:49] VITALS: BP 120/76
--- NOTE | 2019-11-09 16:41 | NUR ---
Mineral oil fleets enema given as ordered medications left for about 30 minutes. a returned of yellowish enema fluid about the same amount that was administered with no solid stool noted. Will Ken in the unit and notified.
--- NOTE | 2019-11-09 19:20 | NUR ---
RECEIVED PATIENT LYING IN BED. AAOX4. IN NO ACUTE DISTRESS. DENIES ANY SOB. COMPLAIN OF ABDOMINAL PAIN. WILL PROVIDE DILAUDID PRN PER ORDER. INCISION SITE ON ABDOMINAL AREA WITH TREVOR INTACT AND DRESSING INTACT. MIDLINE ON RIGHT UPPER ARM AND IJ ON RIGHT SIDE OF NECK INTACT. IVF INFUSING. NSR ON TELE AT 95/MIN. SAFETY MEASURE INITIATED AND CALL LOCKWOOD WITHIN REACHED.
[2019-11-09 20:17] VITALS: BP 148/93
[2019-11-10] VITALS: BP 128/86
[2019-11-10] MEDS: LORAZEPAM 2 MG/1 ML VIAL IV PRN ×2 (00:35→08:05)
[2019-11-10] MEDS: diphenhydrAMINE 50 MG/1 ML VIAL IV PRN ×3 (02:23→14:23)
[2019-11-10] MEDS: POTASSIUM CHLORIDE 40 MEQ in IV D5/ 0.9% NACL 1,000 ML IV PRN ×2 (02:48→12:33)
[2019-11-10] MEDS: PIPERACILLIN/TAZOBACTAM/D5W 3.375 G in PREMIXED 1 EACH IV SCH ×2 (03:01→12:08)
[2019-11-10] MEDS: HYDROMORPHONE 2 MG/1 ML DISP.SYRIN IV PRN ×3 (03:01→09:31)
[2019-11-10 04:00] VITALS: BP 137/75
[2019-11-10] MEDS ORDERED: MAGNESIUM CITRATE 296 ML BOTTLE PO ONE (06:00)
[2019-11-10] MEDS: PANTOPRAZOLE SODIUM 40 MG TABLET.DR PO SCH (06:01)
--- NOTE | 2019-11-10 06:20 | NUR ---
AAOX4. IN NO ACUTE DISTRESS. DENIES ANY SOB. DILAUDID 2MG IV Q3HRS PRN GIVEN FOR COMPLAIN OF ABDOMINAL PAIN AND EFFECTIVE. INCISION SITE ON ABDOMINAL AREA WITH DRESSING INTACT. MIDLINE ON RIGHT UPPER ARM AND IJ ON RIGHT SIDE OF NECK INTACT. IVF INFUSING. NO ADVERSE REACTION NOTED FROM IV ABX. NSR ON TELE AT 99/MIN. SAFETY MEASURE MAINTAINED AND CALL LOCKWOOD WITHIN REACHED.
--- NOTE | 2019-11-10 07:30 | NUR ---
REceived pt. in bed AAOX4. at this time sleeping.
[2019-11-10 08:00] VITALS: BP 129/80
[2019-11-10] MEDS: MIRALAX 17 GM POWD.PACK PO SCH (08:04)
[2019-11-10] MEDS: FLUTICASONE/VILANTEROL 1 EACH BLST.W.DEV INH SCH (08:04)
[2019-11-10] MEDS: ENOXAPARIN SODIUM 40 MG/0.4 ML DISP.SYRIN SQ SCH (08:05)
--- NOTE | 2019-11-10 08:20 | NUR ---
Patient screaming shouting and when inquire about her need she's requesting the schedule of her benadryl, ativan and pain medication patient medicated with benadryl and ativan at this time.
--- NOTE | 2019-11-10 09:43 | NUR ---
Patient screaming shouting "I'm in pain" pt. noted to be restless and agitated removing all her clothes. Medicated for pain as requested, and immediately right after pt. requested to speak with attending to have her pain medication to be increased and according to her as stated "2mg not enough to meet her need and that at home she takes 8mg of dilaudid." Addendum: 11/10/19 at 1635 by NILSON SANTIAGO RN also informed that pt. is threatening to leave AMA if her pain medication not managed correctly as stated by her.
[2019-11-10 11:18] VITALS: BP 124/76
[2019-11-10] MEDS: HYDROMORPHONE 1 MG/1 ML DISP.SYRIN IV PRN ×2 (12:14→15:22)
--- NOTE | 2019-11-10 13:45 | NUR ---
At this time patient screaming out-loud demanding her pain medication and benadryl at this time becoming aggressive yelling and demanding pain medications as well as ativan and benadryl. called and notified no new orders received.
[2019-11-10 15:06] VITALS: BP 141/84
--- NOTE | 2019-11-10 16:35 | NUR ---
Case management Ana Maria at bedside to speak with patient and discussed future care plan. patient educated on the reasoning behind decreasing the amount of dilaudid, and the need to be more physically active. Patient not happy with information and at this time stating if she doesn't get her pain managed better she's leaving AMA. Attending notified.
--- NOTE | 2019-11-10 16:55 | NUR ---
11/10/19 Spoke to the patient in her room with her RN, Stormy, about her concerns. She verbalized that she needs for the doctors to increase her pain medication. The patient was just given pain medication and seemed very lethargic not even looking at this service center coordinator. Explained to her that GI has concerns because she is not able to move her bowel and the pain medicaiton is causing her constipation. Also reminded her that she was refusing the suppository and was not walking around. She denied refusing the suppository and stated that she was walking around but the RNs stopped her from walking. Stormy confirmed that they are not stopping her. Explained once again that it is like a catch 22 because we know that she needs the pain medication but it is also the one causing her pain. We are unable to give her more pain medication unless she moves her bowel. She became very angry and said that she wants to leave AMA. Explained the repercussions of her actions and she didn't care. Updated Dr. Sanchez and the lost charge card clerk, Cedric.
--- NOTE | 2019-11-10 17:08 | NUR ---
belongings, and medications returned to patient, after she sign AMA form, at this time patient waiting in the room for her parents to pick her up. KAREN and KEATON rae no signs of bleeding or complications patient instructed to follow up with surgeon for suture removal. Addendum: 11/10/19 at 1714 by NILSON SANTIAGO RN Patient provided with Dr. Jeffers's office number to call for a follow up suture removal appointment.
--- NOTE | 2019-11-10 17:50 | NUR ---
Patient taken down via wheel-chair as informed her parents are waiting at the [facility] to be taken home. Patient left AMA refusing last set of vitals. AAOx.4. ambulatory. Instructed to follow up with Dr. Jeffers for follow up stapples removal.. abdominal incision with dressing c.d.i. no signs of complications. Addendum: 11/10/19 at 1754 by NILSON SANTIAGO RN Patient able to get dress on her own.
[2019-11-10] MEDS ORDERED: DOCUSATE SODIUM 100 MG CAPSULE PO SCH (21:00)
--- NOTE | 2019-11-11 11:33 | NUR ---
Spoke with Mari from [facility] and updated her that the pt. left AMA yesterday
[2019-11-15] MEDS ORDERED: LUBI24CA5 PO (11:02)
[2019-11-15] MEDS ORDERED: LEVO500T2 PO (11:10)
[2019-11-15] MEDS ORDERED: METR500T PO (11:10)
== END 2019-11-10 17:50 | disposition left against medical advice (07) | DRG 227 ==
LOC: ER 21:02 → TELE 23:19 → MED 10-29 09:49 → MEDSURG3 10-31 09:50 → CCU 10-31 19:10 → TELE3 11-04 12:15 → MEDSURG3 11-10 09:06
PROVIDERS: ADMIT Nurse Practitioner Acute Care; ATTEND Internal Medicine
PROC: 05H933Z Insertion of Infusion Device into Right Brachial Vein, Percutaneous Approach (ICD-10-PCS; principal; 2019-10-31)
PROC: 0BH17EZ Insertion of Endotracheal Airway into Trachea, Via Natural or Artificial Opening (ICD-10-PCS; principal; 2019-10-31)
PROC: 0WQF0ZZ Repair Abdominal Wall, Open Approach (ICD-10-PCS; principal; 2019-10-31)
PROC: 0DNU0ZZ Release Omentum, Open Approach (ICD-10-PCS; principal; 2019-10-31)
PROC: 5A1945Z Respiratory Ventilation, 24-96 Consecutive Hours (ICD-10-PCS; principal; 2019-10-31)
PROC: 0DN80ZZ Release Small Intestine, Open Approach (ICD-10-PCS; principal; 2019-10-31)
DX: K56.50 Intestinal adhesions [bands], unspecified as to partial versus complete obstruction (principal); J96.01 Acute respiratory failure with hypoxia; K63.1 Perforation of intestine (nontraumatic); N17.0 Acute kidney failure with tubular necrosis; D61.818 Other pancytopenia; E83.42 Hypomagnesemia; D68.69 Other thrombophilia; E87.1 Hypo-osmolality and hyponatremia; K43.2 Incisional hernia without obstruction or gangrene; N39.0 Urinary tract infection, site not specified; E86.0 Dehydration; E86.1 Hypovolemia; E87.6 Hypokalemia; Z87.11 Personal history of peptic ulcer disease; Z90.710 Acquired absence of both cervix and uterus; D53.9 Nutritional anemia, unspecified; R00.0 Tachycardia, unspecified; Z88.2 Allergy status to sulfonamides; Z76.5 Malingerer [conscious simulation]; K56.7 Ileus, unspecified; Z90.721 Acquired absence of ovaries, unilateral; G89.4 Chronic pain syndrome; Z79.891 Long term (current) use of opiate analgesic; F32.9 Major depressive disorder, single episode, unspecified; K56.41 Fecal impaction; G93.40 Encephalopathy, unspecified
CPT/HCPCS: 36415; 36600; 70030-TC; 71045; 74018; 74250; 83550; 83605; 83690; 83735; 84100; 84443; 84703; 85025; 85730; 87040; 87086; 93005; 93307; 94002; 94003; 94640; 94664; A4217; A4649; A4663; C9113; G0378; J0330; J0360; J0610; J0690; J0696; J1170; J1200; J1650; J1940; J2001; J2060; J2370; J2405; J2543; J2916; J3475; J3480; J3490; J3590; J7030; J7040; J7042; J7050; J7060; J7120; Q9963; U0003-CS

== ENCOUNTER 2019-11-12 18:32 | Inpatient (IN) | payer OTHER ==
[~2019-11-12] VITALS: Ht 162.6 cm; Wt 64.0 kg
[~2019-11-12 18:32] MED LIST changes: +ALBU2.5V13 IH; -ALBU2.5V13 NEB; -ASPI-869 PO; -BUSP5TAB3 PO; -CARI350T PO; +DIAZ10TA PO; +DIPH25TA62 PO; +FLUT1BLS11 IH; +GABA300C PO; -HYDR-3026 PO; -HYDR-3028 PO; +HYDR4TAB4 PO; +TIOT18CA3 IH; +[UNRECOGNIZED DRUG - REMARK]
[2019-11-12] MEDS ORDERED: ATIVAN (18:58)
--- NOTE | 2019-11-12 19:05 | NUR ---
Dr. Lopez at bedside for MSE.
[2019-11-12] MEDS ORDERED: IV NORMAL SALINE 500 ML BAG IV ONE (19:15)
[2019-11-12] MEDS ORDERED: ONDANSETRON 4 MG/2 ML VIAL IV ONE ×2 (19:15→22:30)
[2019-11-12] MEDS ORDERED: MORPHINE SULFATE 2 MG/1 ML DISP.SYRIN IV ONE (19:15)
[2019-11-12] MEDS ORDERED: MORPHINE SULFATE 4 MG/1 ML DISP.SYRIN ONE (19:21)
[2019-11-12 19:52] LABS: BASOPHILS % (AUTO) 0.2 % (0.0-2.0); EOSINOPHILS # (AUTO) 0.1 K/uL (0.0-0.7); EOSINOPHILS % (AUTO) 0.6 % (0.0-7.0); HEMATOCRIT 27.8 % (31.2-41.9); HEMOGLOBIN 9.5 g/dL (10.9-14.3); LYMPHOCYTES # (AUTO) 1.3 K/uL (20.0-40.0); LYMPHOCYTES % (AUTO) 10.5 % (20.5-51.5); MEAN CORPUSCULAR HEMOGLOBIN 33.4 uug (24.7-32.8); MEAN CORPUSCULAR HGB CONC 34 g/dL (32.3-35.6); MEAN CORPUSCULAR VOLUME 97.6 fL (75.5-95.3); MONOCYTES # (AUTO) 1.2 K/uL (2.0-10.0); MONOCYTES % (AUTO) 9.9 % (0.0-11.0); NEUTROPHILS # (AUTO) 9.6 K/uL (1.8-8.9); NEUTROPHILS % (AUTO) 78.8 % (38.5-71.5); PLATELET COUNT (AUTO) 537 K/uL (179-408); RED BLOOD CELL COUNT(AUTO) 2.85 MIL/uL (3.63-4.92); WHITE BLOOD COUNT (AUTO) 12.2 K/uL (3.8-11.8)
[2019-11-12] MEDS ORDERED: PIPERACILLIN SODIUM/TAZOBACTAM 3.375 G in IV DEXTROSE 5% 50 ML IV ONE (20:00)
[2019-11-12] MEDS ORDERED: PIPERACILLIN/TAZOBACTAM/D5W 50 ML IV ONE (20:00)
[2019-11-12 20:14] LABS: CARBON DIOXIDE 23 mmol/L (21-32); CHLORIDE 91 mmol/L (98-107); CREATININE 0.9 mg/dL (0.6-1.3); GLUCOSE 117 mg/dL (74-106); POTASSIUM 3.9 mmol/L (3.5-5.1); UREA NITROGEN, BLOOD 19 mg/dL (7-18)
[2019-11-12] MEDS ORDERED: HYDROMORPHONE 1 MG/1 ML DISP.SYRIN IV ONE ×2 (20:15→22:30)
--- NOTE | 2019-11-12 20:15 | NUR ---
Nathalie belcher in ED - 11/12/19 at 2126 by AZRA Pt back to ER from CT.
[2019-11-12 20:19] LABS: ALANINE AMINOTRANSFERASE 25 U/L (14-59); ALKALINE PHOSPHATASE 115 U/L (50-136); ASPARTATE AMINOTRANSFERASE 36 U/L (15-37); BILIRUBIN,DIRECT 0.2 mg/dL (0.0-0.2); BILIRUBIN,TOTAL 1.1 mg/dL (0.2-1.0)
[2019-11-12] MEDS ORDERED: HYDROMORPHONE 1 MG/1 ML DISP.SYRIN ONE (20:19)
[2019-11-12 20:27] LABS: LIPASE 42 U/L (73-393)
[2019-11-12] MEDS ORDERED: IV NORMAL SALINE 500 ML IV ONE ×2 (20:30→22:00)
[2019-11-12] MEDS ORDERED: IOHEXOL 300MG/ML 100 ML INFUS..BTL ONE (20:41)
[2019-11-12] MEDS ORDERED: SWABABLE VALVE TRANSFER SET EA MC ONE (20:41)
[2019-11-12] MEDS ORDERED: IV NORMAL SALINE 250 ML IV ONE (20:41)
--- NOTE | 2019-11-12 20:48 | NUR ---
Patient out of ER for CT.
--- NOTE | 2019-11-12 21:15 | NUR ---
Pt back to ER from CT.
--- NOTE | 2019-11-12 21:38 | NUR ---
STAT call placed for Dr Hollis. He is speaking with Dr. Lopez as of now.
--- NOTE | 2019-11-12 21:41 | NUR ---
Dr. Lopez speaking with Dr. Jeffers.
[2019-11-12 21:50] LABS: *BILIRUBIN,URIN NEGATIVE (NEGATIVE); *BLOOD, URINE 2+ (NEGATIVE); *CLARITY,URINE SLIGHTLY CLOUDY (CLEAR); *COLOR,URINE YELLOW (YELLOW); *KETONES,URINE 1+ (NEGATIVE); *UROBILINOGEN,URINE 0.2 E.U./dl (NORMAL); LEUKOCYTE ESTERASE ,URINE TRACE (NEGATIVE); NITRITE, URINE NEGATIVE (NEGATIVE); UGLUCOSE NEGATIVE (NEGATIVE)
--- NOTE | 2019-11-12 21:50 | NUR ---
Dr. Lopez speaking with Dr. Tejas Sanchez.
[2019-11-12 21:54] LABS: BACTERIA,URINE FEW /HPF (NONE SEEN); SQUAMOUS EPITHELIAL CELL,UR MODERATE /HPF (NONE SEEN)
--- NOTE | 2019-11-12 21:58 | NUR ---
16 Yi FC inserted per Dr. Lopez. Currently draining clear yellow urine.
[2019-11-12] MEDS ORDERED: NEOSTIGMINE METHYLSULFATE 10 MG/10 ML VIAL IV ONE (22:45)
--- NOTE | 2019-11-12 23:10 | NUR ---
Dr. Benito Jeffers at bedside for MSE. Neostigmine 3mg and 0.2mg of the Glycopyrrolate given via MD by Dr. Benito Jeffers. Digital examination done. Will continue to monitor.
--- NOTE | 2019-11-12 23:15 | NUR ---
Placed patient on O2 2LPM and increased to 4LPM via nasal cannula.
--- NOTE | 2019-11-12 23:15 | NUR ---
Nathalie belcher in [facility] - 11/13/[address] Hollis at [facility].
--- NOTE | 2019-11-13 00:42 | NUR ---
Spoke with Sandee of [facility], provided clinicals.
--- NOTE | 2019-11-13 01:09 | NUR ---
Called [facility] to page Bobby Cardona DNP.
--- NOTE | 2019-11-13 01:50 | NUR ---
Dr. Lopez speaking with Bobby Cardona DNP. Patient accepted for admission to [facility], diagnosis: small bowel obstruction.
[2019-11-13] MEDS ORDERED: ACETAMINOPHEN 325 MG TABLET PO PRN (02:15)
[2019-11-13] MEDS ORDERED: Z GUARD REMEDY PASTE 57 GM TUBE TOP PRN (02:15)
--- NOTE | 2019-11-13 02:30 | NUR ---
Report given to Rei GLASS Medsurg.
[2019-11-13 02:50] VITALS: BP 116/64
[2019-11-13] MEDS: IV NS 1000 ML 1,000 ML IV PRN ×2 (03:00→21:21)
[2019-11-13] MEDS: HYDROMORPHONE 1 MG/1 ML DISP.SYRIN IV PRN ×5 (03:05→21:27)
[2019-11-13] MEDS ORDERED: PIPERACILLIN/TAZOBACTAM/D5W 50 ML IV ONE (03:38)
--- NOTE | 2019-11-13 03:50 | NUR ---
ORDERS RECEIVED FOR KUB ON ABDOMEN FOR NG TUBE PLACEMENT FROM DR. FISCHER.
[2019-11-13] MEDS ORDERED: PIPERACILLIN SODIUM/TAZOBACTAM 3.375 G in IV DEXTROSE 5% 50 ML IV ONE (04:00)
--- NOTE | 2019-11-13 04:57 | NUR ---
PATIENT RECEIVED FROM ER. NO S/S OF ACUTE DISTRESS. V/S STABLE. NG TUBE PLACED ON RIGHT NARE 14FRENCH. ORDERS RECEIVED FROM DR. FISCHER FOR KUB NG TUBE PLACEMENT. WAITING FOR WIRE COINER. IVP PATENT AND INTACT. WILL CONTINUE TO MONITOR.
[2019-11-13 05:07] VITALS: BP 102/61
[2019-11-13] MEDS ORDERED: PIPERACILLIN SODIUM/TAZOBACTAM 3.375 G in IV DEXTROSE 5% 50 ML IV SCH (06:00)
--- NOTE | 2019-11-13 06:56 | NUR ---
PATIENT SLEEPING IN BED. NG TUBE PLACEMENT IN RIGHT NARES ON LOW INTERMEDIATE SUCTION. KUB FOR NG TUBE PLACEMENT ORDERED AT 0350. RESPIRATORY THERAPY MANAGER STILL NOT HERE. STAT ORDER AND AWAITING. IVP PATENT AND INTACT. PHARMACY UNABLE TO OBTAIN MEDICATIONS DR. JACKSON PRESCRIBED AND REQUIRE AUTHORIZATION FROM DIAMOND, SURVEY MANAGER OF IN HOUSE PHARMACY. WILL CONTACT DR. JACKSON AND NOTIFY. WRITTEN ORDERS RECEIVED FROM DR. JACKSON AND PLACED. V/S STABLE AND AFEBRILE. NO S/S OF ACUTE DISTRESS NOTED AT THIS TIME. ADMISSION COMPLETED. WILL CONTINUE TO MONITOR AND ENDORSE TO MORNING NURSE.
[2019-11-13] MEDS ORDERED: NEOSTIGMINE METHYLSULFATE 10 MG/10 ML VIAL IM ONE (07:21)
[2019-11-13] MEDS ORDERED: GLYCOPYRROLATE 0.2 MG/ML VIAL MC ONE (07:21)
--- NOTE | 2019-11-13 07:47 | NUR ---
DR JACKSON CONTACTED REGARDING PHARMACY UNABLE TO OBTAIN MEDICATIONS METHYLNALTREXONE AND AMITIZA. CHARGE SPOKE WITH DR. JACKSON WELL REGARDING THIS MATTER. ORDERS RECEIVED FOR PHOSPHORUS AND MAGNESIUM LAB LEVELS AND FOR PATIENT TO WALK AROUND 3 TIMES A DAY.
--- NOTE | 2019-11-13 07:48 | NUR ---
IMPLEMENTATION TECHNICIAN MIKE CALLED TO ASK ABOUT ON HIS WAY.
[2019-11-13 08:00] VITALS: BP 100/64
--- NOTE | 2019-11-13 08:06 | NUR ---
At this time medicated for pain and at 0830 with nursing sheet mill supervisor as witness patient educated one more time and encourage to walk as stated "I know I'll walk later on give me a minute.
[2019-11-13] MEDS: ONDANSETRON 4 MG/2 ML VIAL IV PRN ×3 (08:09→21:24)
--- NOTE | 2019-11-13 09:00 | NUR ---
Patient encourage and educated on the benefit to walk refusing at this time.
--- NOTE | 2019-11-13 09:26 | NUR ---
A call from [facility] full report given call back number left if plans for discharge
[2019-11-13 10:01] LABS: MAGNESIUM 1.7 mg/dL (1.8-2.4)
[2019-11-13 10:03] LABS: PHOSPHOROUS 2.9 mg/dL (2.5-4.9)
[2019-11-13 12:00] VITALS: BP 101/66
[2019-11-13 13:02] LABS: CREATININE 0.7 mg/dL (0.6-1.3); POTASSIUM 3.8 mmol/L (3.5-5.1)
--- NOTE | 2019-11-13 13:45 | NUR ---
Patient with large amount of vomit, greenish/yellowish in color a total of 400cc out. Surgeon Dr. Jeffers called to be notified. Orders to place NG-T to LIS and magnesium 3mg to be given and phosphorus to be replaced by pharmacy protocol received.
--- NOTE | 2019-11-13 14:37 | NUR ---
A call from surgeon Dr. Jeffers orders for compazine 25mg AR Q12 hours, and erythromycycin 500mg iv 1st dose and if not available po dose is ok as ordered. and then follow up with erythromycin 500 mg po Q8hrs.
--- NOTE | 2019-11-13 14:53 | NUR ---
Patient with allergies to ( compazine, phenergan, thoracin)all in the same allergy family, Surgeon notified and as stated by Dr. Jeffers, if patient allergic don't give medication and let pharmacy see which other medication to give to help pt. move her bowels. Pharmacist Analilia notified and for now pt. will be receiving erythromycin per px. protocol pending results.
[2019-11-13] MEDS ORDERED: ERYTHROMYCIN ETHYLSUCC 200 MG/5 ML SUSPENSION 100ML PO SCH (15:00)
[2019-11-13] MEDS: PIPERACILLIN/TAZOBACTAM/D5W 3.375 G in IV DEXTROSE 5% 50 ML IV SCH ×2 (15:03→21:21)
[2019-11-13] MEDS: MAGNESIUM SULFATE/D5W 100 ML IV SCH ×3 (15:03→17:06)
[2019-11-13] MEDS: ERYTHROMYCIN ETHYLSUCC 200 MG/5 ML SUSPENSION 100ML PO SCH ×2 (15:16→21:25)
[2019-11-13 16:37] VITALS: BP 127/86
--- NOTE | 2019-11-13 17:57 | NUR ---
Left patient on bed resting AAOX4. vitals stable throughout the shift, medicated for pain ATC. remains NPO with Ng to LIS. Patient with more than 1 episode of vomiting surgeon notified and orders implemented. Huynh to gravity with adequate urine output. Addendum: 11/13/19 at 1807 by NILSON SANTIAGO RN ML to RUE infusing with NS at 75cc/hr.
--- NOTE | 2019-11-13 19:30 | NUR ---
RECEIVED PT ALERT, AWAKE AND ORIENTEDX3. PT IN NO ACUTE RESPIRATORY DISTRESS. IV INTACT.BEY INTACT AND DRAINING WELL. NGTUBE INTACT.SAFETY AND COMFORT PROVIDED. WILL CONTINUE TO MONITOR.
--- NOTE | 2019-11-13 19:49 | NUR ---
DR. NASIR JACKSON ORDERED LACTULOSE [id number] AND PSYCHIATRIST CONSULT. PT IN NO ACUTE DISTRESS. WILL CONTINUE TO MONITOR.
[2019-11-13] MEDS ORDERED: LACTULOSE 20 G/30 ML LIQUID UDC PO SCH (21:00)
[2019-11-13 21:01] VITALS: BP 122/68
[2019-11-13] MEDS: LACTULOSE 20 G/30 ML LIQUID UDC PO SCH (21:21)
--- NOTE | 2019-11-13 22:48 | NUR ---
ATIVAN 1MG IV Q8HPRN ORDERED BY KERWIN RICK. PT RESTLESS AND AGITATED. SAFETY AND COMFORT PROVIDED. WILL CONTINUE TO MONITOR.
[2019-11-13] MEDS: LORAZEPAM 2 MG/1 ML VIAL IV PRN (23:17)
[2019-11-14] MEDS: HYDROMORPHONE 1 MG/1 ML DISP.SYRIN IV PRN ×6 (01:32→22:11)
[2019-11-14] MEDS: ONDANSETRON 4 MG/2 ML VIAL IV PRN ×3 (04:42→18:27)
[2019-11-14] MEDS: PIPERACILLIN/TAZOBACTAM/D5W 3.375 G in IV DEXTROSE 5% 50 ML IV SCH ×2 (05:24→15:34)
[2019-11-14] MEDS: ERYTHROMYCIN ETHYLSUCC 200 MG/5 ML SUSPENSION 100ML PO SCH ×2 (05:25→15:25)
[2019-11-14 05:39] VITALS: BP 106/52
--- NOTE | 2019-11-14 06:10 | NUR ---
PT SLEPT INTERMITTENTLY. PT IN NO ACUTE RESPIRATORY DISTRESS. IV INTACT. BEY INTACT. NGTUBE INTACT. DILAUDID GIVEN AT 2124H, 0132h and 0535 H FOR ABDOMINAL PAIN.PT TOLERATED IT WELL. PT GIVEN ZOFRAN AT 2124H and 0442h. AT 2317H PT GIVEN ATIVAN FOR RESTLESSNESS AND AGITATION. PT TOLERATED IT WELL. PRESCRIBED MEDICATION GIVEN AND PT TOLERATED IT WELL. SAFETY AND COMFORT PROVIDED. ALL NEEDS ARE MET.WILL ENDORSE TO INCOMING NURSE FOR CONTINUITY OF CARE.
[2019-11-14 07:16] LABS: BASOPHILS % (AUTO) 0.1 % (0.0-2.0); EOSINOPHILS % (AUTO) 0.6 % (0.0-7.0); HEMATOCRIT 25.7 % (31.2-41.9); HEMOGLOBIN 8.8 g/dL (10.9-14.3); LYMPHOCYTES # (AUTO) 0.5 K/uL (20.0-40.0); LYMPHOCYTES % (AUTO) 7.6 % (20.5-51.5); MEAN CORPUSCULAR HGB CONC 34 g/dL (32.3-35.6); MEAN CORPUSCULAR VOLUME 98.9 fL (75.5-95.3); MONOCYTES # (AUTO) 0.5 K/uL (2.0-10.0); MONOCYTES % (AUTO) 7.4 % (0.0-11.0); NEUTROPHILS # (AUTO) 5.6 K/uL (1.8-8.9); NEUTROPHILS % (AUTO) 84.3 % (38.5-71.5); PLATELET COUNT (AUTO) 467 K/uL (179-408)
--- NOTE | 2019-11-14 07:29 | NUR ---
Dr. NASIR JACKSON ORDERED TO CLAMP FOR 2H NGTUBE AND RESTART IT AFTER. PT IN NO ACUTE RESPIRATORY DISTRESS. WILL ENDORSE TO INCOMING NURSE.
[2019-11-14 07:49] LABS: BILIRUBIN,TOTAL 0.4 mg/dL (0.2-1.0); CREATININE 0.6 mg/dL (0.6-1.3); MAGNESIUM 1.8 mg/dL (1.8-2.4); POTASSIUM 3.1 mmol/L (3.5-5.1); TOTAL PROTEIN, SERUM 5.7 g/dL (6.4-8.2)
--- NOTE | 2019-11-14 08:00 | NUR ---
Pt was received to care, asleep. Pt was recently given pain medications. IV - right arm mid line running at 75 cc/hr. Ng tube is intact and working. No distress at this time
[2019-11-14 08:36] LABS: WHITE BLOOD COUNT (AUTO) 6.7 K/uL (3.8-11.8)
[2019-11-14 08:41] LABS: THYROID STIMULATING HORMONE 2.268 mIU/mL (0.358-3.740)
[2019-11-14] MEDS ORDERED: SODIUM PHOSPHATE MM 15 MMOL in IV NORMAL SALINE 250 ML IV ONE (08:45)
[2019-11-14 09:38] VITALS: BP 98/55
[2019-11-14] MEDS: LACTULOSE 20 G/30 ML LIQUID UDC PO SCH ×2 (09:40→21:16)
[2019-11-14] MEDS: LORAZEPAM 2 MG/1 ML VIAL IV PRN ×2 (09:40→18:05)
[2019-11-14] MEDS: POTASSIUM CHLORIDE 50 ML IV SCH ×4 (10:16→20:57)
[2019-11-14] MEDS ORDERED: DIATR MEGLU/DIATRIZOATE SODIUM 30 ML BOTTLE ONE (11:23)
--- NOTE | 2019-11-14 11:30 | NUR ---
Huynh was noted to be out. Pt stated that it "just came out." Pt is refusing to have another one inserted. No signs of bleeding. Will continue to monitor to retention.
[2019-11-14 12:00] VITALS: BP 121/44
[2019-11-14] MEDS: IV NS 1000 ML 1,000 ML IV PRN (12:45)
[2019-11-14] MEDS: AMITIZA 24 MCG PO SCH ×2 (14:18→21:17)
[2019-11-14 16:00] VITALS: BP 145/80
[2019-11-14] MEDS: diphenhydrAMINE 50 MG/1 ML VIAL IV PRN ×2 (16:36→23:35)
[2019-11-14] MEDS ORDERED: AMITIZA 24 MCG PO SCH (17:00)
--- NOTE | 2019-11-14 18:43 | NUR ---
Pt remains anxious and states she is in pain due to the obstruction. all available anxiety and pain medications given. Pt had small amounts of liquid stool, but no actual bowel movements. pt refused to ambulate, stating she is not feeling well. IV fluids running, pt is offered ice chips.
[2019-11-14 20:00] VITALS: BP 136/88
--- NOTE | 2019-11-14 20:35 | NUR ---
Patient in bed, screaming from pain d/t bowel obstruction. Patient seems anxious. Will assess and provide PRN pain medication. Will continue with the plan of care.
[2019-11-14] MEDS ORDERED: LUBIPROSTONE 24 MCG CAPSULE PO ONE (21:00)
--- NOTE | 2019-11-14 21:00 | NUR ---
Patient was given remaining 1 bag of KCL from the previous order from day shift
--- NOTE | 2019-11-14 22:30 | NUR ---
undersigned spoke w/ rufino clarke np regarding small bowel ff thru, no result at this time.
[2019-11-14] MEDS: MAGNESIUM SULFATE/D5W 100 ML IV SCH ×2 (22:31→23:33)
--- NOTE | 2019-11-14 23:20 | NUR ---
DR. JACKSON CALLED AND ASCERTAIN PT;S CONDITION,NO NEW ORDERS GIVEN.
--- NOTE | 2019-11-14 23:23 | NUR ---
X RAY DEPT MADE AWARE THAT RESULT FR SBFFTHRU STILL NOT AVAILABLE.WILL FF UP AT A LATER TIME.
[2019-11-15] MEDS: MAGNESIUM SULFATE/D5W 100 ML IV SCH (00:41)
[2019-11-15] MEDS: ERYTHROMYCIN ETHYLSUCC 200 MG/5 ML SUSPENSION 100ML PO SCH ×2 (01:12→06:11)
[2019-11-15] MEDS: ONDANSETRON 4 MG/2 ML VIAL IV PRN ×2 (01:13→10:12)
--- NOTE | 2019-11-15 01:41 | NUR ---
Xray result of bowel follow through was sent to Abbie Wu NP. Will follow up accordingly.
[2019-11-15] MEDS: PIPERACILLIN/TAZOBACTAM/D5W 3.375 G in IV DEXTROSE 5% 50 ML IV SCH ×2 (01:46→06:11)
[2019-11-15] MEDS: HYDROMORPHONE 1 MG/1 ML DISP.SYRIN IV PRN ×3 (02:21→11:25)
[2019-11-15] MEDS: LORAZEPAM 2 MG/1 ML VIAL IV PRN ×2 (03:30→13:03)
[2019-11-15 04:00] VITALS: BP 128/76
[2019-11-15] MEDS: diphenhydrAMINE 50 MG/1 ML VIAL IV PRN ×2 (06:16→11:56)
[2019-11-15 06:27] LABS: BASOPHILS % (AUTO) 0.5 % (0.0-2.0); EOSINOPHILS % (AUTO) 0.4 % (0.0-7.0); HEMATOCRIT 26.8 % (31.2-41.9); HEMOGLOBIN 9.3 g/dL (10.9-14.3); LYMPHOCYTES # (AUTO) 0.7 K/uL (20.0-40.0); LYMPHOCYTES % (AUTO) 13.5 % (20.5-51.5); MEAN CORPUSCULAR HEMOGLOBIN 33.8 uug (24.7-32.8); MEAN CORPUSCULAR HGB CONC 35 g/dL (32.3-35.6); MEAN CORPUSCULAR VOLUME 97.2 fL (75.5-95.3); MONOCYTES # (AUTO) 0.5 K/uL (2.0-10.0); MONOCYTES % (AUTO) 9.5 % (0.0-11.0); NEUTROPHILS # (AUTO) 4.2 K/uL (1.8-8.9); NEUTROPHILS % (AUTO) 76.1 % (38.5-71.5); PLATELET COUNT (AUTO) 463 K/uL (179-408); RED BLOOD CELL COUNT(AUTO) 2.76 MIL/uL (3.63-4.92); WHITE BLOOD COUNT (AUTO) 5.6 K/uL (3.8-11.8)
--- NOTE | 2019-11-15 06:45 | NUR ---
Patient slept intermittently throughout the night. Patient in no acute respiratory distress. ANUEL midline is intact and patent. Midline abdominal surgical incision well approximated, yuri in place, no drainage noted. Patient was given Dilaudid at 2211H, 0221H for abdominal pain. Patient had 1 episode of vomitting, given Zofran at 0113H. Per patient's request, given Benadryl at 2335H. At 0330H, patient was given Ativan for restlessness and agitation. Patient had 2 episodes of loose bowel movement. Prescribed medications were given, patient tolerated well. Patient's vitals stable. Comfort care and needs provided. Safety measures in place. Bed low and locked in position. Call light within reach. Will endorse to the oncoming nurse accordingly.
--- NOTE | 2019-11-15 07:30 | NUR ---
Discussed plan of care with pt re: pain management and constipation. Pt agreeable on walking around hallway to help with BM. Pt is in no acute distress. MID line on right brachial intact and flushes without any resistance. Call light is within reach.
[2019-11-15] MEDS: LACTULOSE 20 G/30 ML LIQUID UDC PO SCH (07:48)
--- NOTE | 2019-11-15 08:00 | NUR ---
PT had good large bowel movement size of 5 golf balls size of brown stools. Bowel sound present hyperactive x 4 quadrants. Walking pt around hallway x 5 earlier this am effective on aiding pt to have a BM. Surgical incision with yuri from xyphoid process to umbilical area. x3 red sutures across abd intact. No dehiscence noted on site.
[2019-11-15 08:02] LABS: CREATININE 0.7 mg/dL (0.6-1.3)
[2019-11-15] MEDS: AMITIZA 24 MCG PO SCH (08:04)
[2019-11-15 08:11] LABS: POTASSIUM 2.8 mmol/L (3.5-5.1)
[2019-11-15] MEDS ORDERED: LUBIPROSTONE 24 MCG CAPSULE PO ONE (08:49)
[2019-11-15] MEDS: POTASSIUM CHLORIDE 50 ML IV SCH ×4 (09:28→12:17)
--- NOTE | 2019-11-15 10:00 | NUR ---
Pt seen by Ann-Marie Braxton. PT is to be discharge home today.
[2019-11-15] MEDS ORDERED: LUBI24CA5 PO (11:02)
[2019-11-15] MEDS ORDERED: METR500T PO (11:10)
[2019-11-15] MEDS ORDERED: LEVO500T2 PO (11:10)
[2019-11-15] MEDS ORDERED: SERTRALINE HCL 50 MG TABLET PO SCH (11:15)
[2019-11-15] MEDS ORDERED: OXCARBAZEPINE 150 MG TABLET PO SCH (11:15)
[2019-11-15 11:27] VITALS: BP 119/72
[2019-11-15] MEDS ORDERED: POTASSIUM CHLORIDE 20 MEQ TAB.PRT.SR PO ONE (11:45)
[2019-11-15] MEDS ORDERED: POTASSIUM CHLORIDE 20 MEQ POWDER PACKET PO ONE (12:00)
--- NOTE | 2019-11-15 12:00 | NUR ---
Clarified with Ann-Marie re: K supplementation order. Pt is to receive total of 40 meq of KCl iv only instead of pharmacys recommendation of 60 meq iv. then give klor con powder 40 meq po.
--- NOTE | 2019-11-15 12:40 | NUR ---
Ativan given to patient as requested by pt secondary to c/o anxiety.
--- NOTE | 2019-11-15 13:15 | NUR ---
Discharge held per Abbie Wu. Notified pt that she needs to be seen by the surgeon first before being cleared to be discharge. Pt states that "My ride is here and Im leaving." Notified pt that it will be an AMA if she leaves. "I dont care im leaving coz my ride will be here in 15 mins." "Take out my IV line". Right brachial midline taken off as requested by patient. PT refused to have AMA paper signed. Instructed pt to go to ER for any emergency ie severe unrelieved pain on her abd. Discussed importance of establishing care with her primary care physician, follow up with GI doctor, and surgical team DR corrigan . Pt acknowledges instructions.
--- NOTE | 2019-11-15 13:39 | NUR ---
Ativan effective. Pt states her anxiety was relieved.
--- NOTE | 2019-11-15 13:40 | NUR ---
PT picked up by her boyfriend. Pt ambulatory with good balance. NO SOB upon leaving. Pt refused to have surgical incisions picture taken. Abbie Carrera (FACILITY ASSISTANT surgery DR corrigan) and Ann-Marie Pelayo hospitalist notified and aware that pt left AMA.
[2019-11-15] MEDS ORDERED: LUBIPROSTONE 24 MCG CAPSULE PO SCH (21:00)
== END 2019-11-15 13:40 | disposition left against medical advice (07) | DRG 247 ==
LOC: ER 18:33 → MEDSURG3 11-13 02:28
PROVIDERS: ADMIT Nurse Practitioner Acute Care; ATTEND Registered Nurse
PROC: 05H533Z Insertion of Infusion Device into Right Subclavian Vein, Percutaneous Approach (ICD-10-PCS; principal; 2019-11-13)
DX: K56.600 Partial intestinal obstruction, unspecified as to cause (principal); E83.39 Other disorders of phosphorus metabolism; E83.42 Hypomagnesemia; E87.1 Hypo-osmolality and hyponatremia; F11.20 Opioid dependence, uncomplicated; E86.1 Hypovolemia; K56.7 Ileus, unspecified; N39.0 Urinary tract infection, site not specified; D53.9 Nutritional anemia, unspecified; E87.6 Hypokalemia; F39 Unspecified mood [affective] disorder; K44.9 Diaphragmatic hernia without obstruction or gangrene; K42.9 Umbilical hernia without obstruction or gangrene; K59.03 Drug induced constipation; Z91.19 Patient's noncompliance with other medical treatment and regimen; Z76.5 Malingerer [conscious simulation]; Z91.14 Patient's other noncompliance with medication regimen; F41.9 Anxiety disorder, unspecified; F60.9 Personality disorder, unspecified; F19.90 Other psychoactive substance use, unspecified, uncomplicated; T40.2X5A Adverse effect of other opioids, initial encounter; Y92.009 Unspecified place in unspecified non-institutional (private) residence as the place of occurrence of the external cause; Z90.710 Acquired absence of both cervix and uterus; Z90.721 Acquired absence of ovaries, unilateral; Z98.890 Other specified postprocedural states
CPT/HCPCS: 36415; 70030-TC; 71045; 74250; 82533; 83550; 83605; 83690; 83735; 84100; 84300; 84443; 85025; 85730; 87040; A4663; G0378; J1170; J1200; J2060; J2270; J2405; J2543; J2710; J3475; J3480; J3490; J7030; J7040; J7050; J7060; Q9963; Q9967

== ENCOUNTER 2019-12-07 22:42 | Emergency (ER) | payer OTHER ==
[~2019-12-07] VITALS: Ht 154.9 cm; Wt 53.5 kg
[~2019-12-07 22:42] MED LIST changes: -HYDR4TAB4 PO; +LEVO500T2 PO; +LUBI24CA5 PO; +METR500T PO; -[UNRECOGNIZED DRUG - REMARK]
--- NOTE | 2019-12-07 22:55 | NUR ---
Dr. Lezama at bedside for MSE.
[2019-12-07 23:21] LABS: BASOPHILS % (AUTO) 0.8 % (0.0-2.0); EOSINOPHILS # (AUTO) 0.1 K/uL (0.0-0.7); EOSINOPHILS % (AUTO) 2.9 % (0.0-7.0); HEMATOCRIT 30.1 % (31.2-41.9); HEMOGLOBIN 10.1 g/dL (10.9-14.3); LYMPHOCYTES # (AUTO) 1.6 K/uL (20.0-40.0); LYMPHOCYTES % (AUTO) 39.9 % (20.5-51.5); MEAN CORPUSCULAR HEMOGLOBIN 32.9 uug (24.7-32.8); MEAN CORPUSCULAR HGB CONC 34 g/dL (32.3-35.6); MEAN CORPUSCULAR VOLUME 97.9 fL (75.5-95.3); MONOCYTES # (AUTO) 0.3 K/uL (2.0-10.0); MONOCYTES % (AUTO) 7.1 % (0.0-11.0); NEUTROPHILS # (AUTO) 1.9 K/uL (1.8-8.9); NEUTROPHILS % (AUTO) 49.3 % (38.5-71.5); PLATELET COUNT (AUTO) 307 K/uL (179-408); RED BLOOD CELL COUNT(AUTO) 3.07 MIL/uL (3.63-4.92); WHITE BLOOD COUNT (AUTO) 3.9 K/uL (3.8-11.8)
[2019-12-07 23:30] LABS: CREATININE 0.7 mg/dL (0.6-1.3); POTASSIUM 3.8 mmol/L (3.5-5.1)
--- NOTE | 2019-12-07 23:33 | NUR ---
Di[employer] Molder at bedside for Abd Xray.
[2019-12-07 23:36] LABS: BILIRUBIN,DIRECT 0.1 mg/dL (0.0-0.2); BILIRUBIN,TOTAL 0.2 mg/dL (0.2-1.0); TOTAL PROTEIN, SERUM 6.9 g/dL (6.4-8.2)
[2019-12-07 23:55] LABS: *BILIRUBIN,URIN NEGATIVE (NEGATIVE); *BLOOD, URINE NEGATIVE (NEGATIVE); *CLARITY,URINE CLEAR (CLEAR); *COLOR,URINE YELLOW (YELLOW); *KETONES,URINE NEGATIVE (NEGATIVE); *UROBILINOGEN,URINE 0.2 E.U./dl (NORMAL); LEUKOCYTE ESTERASE ,URINE NEGATIVE (NEGATIVE); NITRITE, URINE NEGATIVE (NEGATIVE); UGLUCOSE NEGATIVE (NEGATIVE)
[2019-12-07 23:56] LABS: *URINE HCG, QUAL NEGATIVE (NEGATIVE)
--- NOTE | 2019-12-08 01:15 | NUR ---
Dr. Lezama inserted central line on R groin. Pt hardstick, unable to start peripheral IV after several attempts.
[2019-12-08] MEDS ORDERED: IOHEXOL 350 100 ML INFUS..BTL ONE (01:24)
[2019-12-08] MEDS ORDERED: IV NORMAL SALINE 250 ML IV ONE (01:24)
[2019-12-08] MEDS ORDERED: SWABABLE VALVE TRANSFER SET EA MC ONE (01:24)
--- NOTE | 2019-12-08 01:40 | NUR ---
Pt went down to CT, stable condition.
--- NOTE | 2019-12-08 01:56 | NUR ---
Pt back from CT.
[2019-12-08 02:53] VITALS: BP 100/71
--- NOTE | 2019-12-08 02:57 | NUR ---
Patient cleared for DC to home. Written and verbal after care instructions given. Patient verbalizes understanding of instructions. Stressed follow up or return to ER for worsening s/s. Central IV removed. Catheter intact and site benign. Pressure and 4x4 gauze applied to site, some bleeding noted and controlled. Stopped bleeding. Pressure dressing kept on site. Discharged to home in stable condition with copies of lab/imaging results. Ambulated out of ER in steady gait.
== END 2019-12-08 02:58 | disposition home or self-care (01) ==
LOC: ER 22:43
DX: R10.9 Unspecified abdominal pain (principal); M79.89 Other specified soft tissue disorders; R06.00 Dyspnea, unspecified
CPT/HCPCS: 36415; 36556; 71275; 74022; 74174; 76937; 76942; 80048; 80076; 81001; 83690; 83880; 84484; 84703; 85025; 85379; 93005; 93971; 99285; Q9967; 70030-TC; A4217; A4663; J7050

== ENCOUNTER 2020-12-13 23:56 | Emergency (ER) | payer OTHER ==
[~2020-12-13] VITALS: Ht 154.9 cm; Wt 68.0 kg
--- NOTE | 2020-12-14 00:10 | NUR ---
Pt came in with c/o generalized body pain, chronic, PL:10/15. No SOB or labored breathing, afebrile. Denies CP/pressure/ Ambulatory, steady gait.
--- NOTE | 2020-12-14 00:12 | NUR ---
Dr. Rodriguez at bedside, MSE in progress.
--- NOTE | 2020-12-14 00:25 | NUR ---
Lab at bedside.
--- NOTE | 2020-12-14 00:30 | NUR ---
Xray at bedside.
[2020-12-14 00:41] LABS: HEMATOCRIT 37.6 % (31.2-41.9); MEAN CORPUSCULAR HEMOGLOBIN 33.3 uug (24.7-32.8); MEAN CORPUSCULAR VOLUME 102.5 fL (75.5-95.3); PLATELET COUNT (AUTO) 196 K/uL (179-408)
[2020-12-14 00:56] LABS: *BILIRUBIN,URIN NEGATIVE (NEGATIVE); *BLOOD, URINE 1+ (NEGATIVE); *COLOR,URINE YELLOW (YELLOW); *KETONES,URINE TRACE (NEGATIVE); *UROBILINOGEN,URINE 0.2 E.U./dl (NORMAL); LEUKOCYTE ESTERASE ,URINE TRACE (NEGATIVE); NITRITE, URINE POSITIVE (NEGATIVE); PH,URINE 5.5 (5.0-8.0); UGLUCOSE NEGATIVE (NEGATIVE)
[2020-12-14 00:58] LABS: *CLARITY,URINE HAZY (CLEAR)
[2020-12-14 01:03] LABS: BACTERIA,URINE MANY /HPF (NONE SEEN); SQUAMOUS EPITHELIAL CELL,UR MANY /HPF (NONE SEEN)
[2020-12-14] MEDS ORDERED: ONDA4TAB5 PO (01:03)
[2020-12-14 01:06] LABS: BILIRUBIN,DIRECT 0.1 mg/dL (0.0-0.2); BILIRUBIN,TOTAL 0.2 mg/dL (0.2-1.0)
[2020-12-14 01:13] LABS: *AMPHETAMINE, URINE NEGATIVE (NEGATIVE); *CANNABINOID, URINE NEGATIVE (NEGATIVE); *COCCAINE, URINE NEGATIVE (NEGATIVE); *OPIATE, URINE POSITIVE (NEGATIVE); *PHENCYCLIDINE SCREEN,URINE NEGATIVE (NEGATIVE)
[2020-12-14] MEDS ORDERED: MAGNESIUM CITRATE 296 ML BOTTLE PO ONE (01:15)
[2020-12-14] MEDS ORDERED: MAGNESIUM CITRATE 296 ML BOTTLE ONE (01:25)
[2020-12-14] MEDS ORDERED: BISA10SU61 RC (01:27)
[2020-12-14] MEDS ORDERED: BISA-79 PO (01:27)
[2020-12-14] MEDS ORDERED: DOCU-141 PO (01:27)
--- NOTE | 2020-12-14 01:55 | NUR ---
Patient eloped from facility. ER physician notified. Arlyn mayo.
[2020-12-19] MEDS ORDERED: PIPERACILLIN/TAZOBACTAM/D5W 50 ML IV ONE (19:11)
[2020-12-19] MEDS ORDERED: KETOROLAC TROMETHAMINE 30 MG INJ ONE (19:11)
== END 2020-12-14 01:58 | disposition left against medical advice (07) ==
LOC: ER 23:58
DX: E53.8 Deficiency of other specified B group vitamins (principal); K59.00 Constipation, unspecified; G89.29 Other chronic pain; M54.5 Low back pain; Z88.6 Allergy status to analgesic agent; Z88.5 Allergy status to narcotic agent; Z88.2 Allergy status to sulfonamides; Z87.891 Personal history of nicotine dependence; Z79.899 Other long term (current) drug therapy; D75.89 Other specified diseases of blood and blood-forming organs
CPT/HCPCS: 36415; 70030-TC; 71045; 74018; 85025; 85730; 87086

== ENCOUNTER 2021-01-21 23:02 | Emergency (ER) | payer OTHER ==
[~2021-01-21] VITALS: Ht 160 cm; Wt 59.0 kg
[~2021-01-21 23:02] MED LIST changes: +BISA-79 PO; +BISA10SU61 RC; +DOCU-141 PO
[2021-01-22 00:11] LABS: CARBON DIOXIDE 26 mmol/L (21-32); CHLORIDE 103 mmol/L (98-107); CREATININE 0.6 mg/dL (0.6-1.3); GLUCOSE 118 mg/dL (74-106); POTASSIUM 3.3 mmol/L (3.5-5.1); UREA NITROGEN, BLOOD 12 mg/dL (7-18)
[2021-01-22] MEDS ORDERED: HYDROMORPHONE 1 MG/1 ML DISP.SYRIN ONE ×2 (00:21→02:15)
[2021-01-22] MEDS ORDERED: ONDANSETRON 4 MG/2 ML VIAL ONE ×2 (00:21→02:15)
[2021-01-22] MEDS: IV NORMAL SALINE 1000 ML BAG IV ONE (00:36)
[2021-01-22] MEDS: ONDANSETRON 4 MG/2 ML VIAL IV ONE ×2 (00:36→02:16)
[2021-01-22] MEDS: HYDROMORPHONE 1 MG/1 ML DISP.SYRIN IV ONE ×2 (00:36→02:16)
[2021-01-22 01:31] LABS: BILIRUBIN,DIRECT 0.1 mg/dL (0.0-0.2); BILIRUBIN,TOTAL 0.2 mg/dL (0.2-1.0); TOTAL PROTEIN, SERUM 6.9 g/dL (6.4-8.2)
--- NOTE | 2021-01-22 02:16 | NUR ---
IV removed. Catheter intact and site benign. Pressure and 4x4 gauze applied to site. No bleeding noted.
--- NOTE | 2021-01-22 02:17 | NUR ---
Pt states she has called for a ride and someone will pick her up and drive her home.
--- NOTE | 2021-01-22 02:17 | NUR ---
Patient discharged to home in stable condition. Written and verbal after care instructions given. Patient verbalizes understanding of instructions. Stressed follow up or return to ER for worsening s/s.
[2021-01-22 02:18] VITALS: BP 116/67
== END 2021-01-22 02:18 | disposition home or self-care (01) ==
LOC: ER 23:04
DX: R10.11 Right upper quadrant pain (principal); G89.29 Other chronic pain; K59.00 Constipation, unspecified; Z98.890 Other specified postprocedural states; Z87.891 Personal history of nicotine dependence; Z88.2 Allergy status to sulfonamides; Z88.5 Allergy status to narcotic agent; Z88.8 Allergy status to other drugs, medicaments and biological substances; Z88.6 Allergy status to analgesic agent; Z79.899 Other long term (current) drug therapy; E87.6 Hypokalemia
CPT/HCPCS: 36415 ×2; 74021; 80048; 80076; 83690; 84702; 96361; 96374; 96375; 96376; 99284; J1170 ×2; J2405 ×2; A4663

== ENCOUNTER 2021-05-22 13:32 | Emergency (ER) | payer OTHER ==
[~2021-05-22] VITALS: Ht 157.5 cm; Wt 56.7 kg
[2021-05-22] MEDS ORDERED: HYDR8TAB2 PO (13:52)
[2021-05-22] MEDS ORDERED: GABA600T12 PO (13:52)
--- NOTE | 2021-05-22 13:55 | NUR ---
PATIENT IS A/A/OX3. PLACED ON A MONITOR. VITAL SIGNS STABLE. STATES SHE FEELS SOB.
[2021-05-22] MEDS: LORAZEPAM 0.5 MG TABLET PO ONE (13:58)
[2021-05-22] MEDS ORDERED: LORAZEPAM 1 MG TABLET ONE (14:02)
[2021-05-22 14:36] LABS: HEMATOCRIT 36.8 % (31.2-41.9); MEAN CORPUSCULAR HEMOGLOBIN 33.3 uug (24.7-32.8); MEAN CORPUSCULAR VOLUME 100.5 fL (75.5-95.3); PLATELET COUNT (AUTO) 279 K/uL (179-408)
[2021-05-22 14:40] LABS: CREATININE 0.9 mg/dL (0.6-1.3); POTASSIUM 3.8 mmol/L (3.5-5.1)
[2021-05-22 14:52] LABS: BILIRUBIN,TOTAL 0.2 mg/dL (0.2-1.0); TOTAL PROTEIN, SERUM 6.6 g/dL (6.4-8.2)
[2021-05-22] MEDS ORDERED: IOHEXOL 350 100 ML INFUS..BTL ONE (15:22)
[2021-05-22] MEDS ORDERED: SWABABLE VALVE TRANSFER SET EA MC ONE (15:22)
[2021-05-22] MEDS ORDERED: IV NORMAL SALINE 250 ML IV ONE (15:22)
--- NOTE | 2021-05-22 16:40 | NUR ---
IV removed. Catheter intact and site benign. Pressure and 4x4 gauze applied to site. No bleeding noted.
--- NOTE | 2021-05-22 16:40 | NUR ---
DC AND FOLLOW UP INSTRUCTIONS GIVEN AND EXPLAINED TO PATIENT WHO STATES SHE UNDERSTANDS ALL INSTRUCTIONS
--- NOTE | 2021-05-22 16:40 | NUR ---
PATIENT STATES SHE "FEELS MUCH BETTER". HER BOYFRIEND WILL BE DRIVING HER HOME, KNOW NOT TO DRIVE BECAUSE SHE HAD ATIVAN.
[2021-05-22 16:43] VITALS: BP 133/89
== END 2021-05-22 16:44 | disposition home or self-care (01) ==
LOC: ER 13:32
DX: R07.9 Chest pain, unspecified (principal); R06.00 Dyspnea, unspecified; Z20.822 Contact with and (suspected) exposure to COVID-19; R79.1 Abnormal coagulation profile; R94.31 Abnormal electrocardiogram [ECG] [EKG]; F17.200 Nicotine dependence, unspecified, uncomplicated; Z88.6 Allergy status to analgesic agent; Z88.2 Allergy status to sulfonamides; Z88.8 Allergy status to other drugs, medicaments and biological substances; G89.29 Other chronic pain; S40.021S Contusion of right upper arm, sequela; X58.XXXS Exposure to other specified factors, sequela
CPT/HCPCS: 36415; 70030-TC; 71045; 71275; 85025; 85610; 85730; 93005; A4663; J7050; Q9967

== ENCOUNTER 2021-05-25 02:38 | Emergency (ER) | payer OTHER ==
[~2021-05-25] VITALS: Ht 157.5 cm; Wt 54.4 kg
[~2021-05-25 02:38] MED LIST changes: +GABA600T12 PO; +HYDR8TAB2 PO
--- NOTE | 2021-05-25 03:00 | NUR ---
Patient walked into ER c/o abdominal pain x1 day with nausea and vomiting. Patient denies diarrhea. Was noted to have [facility] arm band on and she states "I just left there because they did not treat me right."
[2021-05-25] MEDS ORDERED: IV NS 1000 ML 1,000 ML IV ONE ×2 (03:30→06:15)
[2021-05-25] MEDS ORDERED: FENTANYL CITRATE 100 MCG/2 ML AMPUL IV ONE ×4 (03:30→13:45)
[2021-05-25] MEDS ORDERED: ONDANSETRON 4 MG/2 ML VIAL IV ONE ×5 (03:30→21:00)
--- NOTE | 2021-05-25 03:48 | NUR ---
Patient out of unit for ct scan via g[place].
[2021-05-25 03:50] LABS: HEMATOCRIT 44.4 % (31.2-41.9); MEAN CORPUSCULAR HEMOGLOBIN 33.5 uug (24.7-32.8); PLATELET COUNT (AUTO) 254 K/uL (179-408)
[2021-05-25] MEDS ORDERED: ONDANSETRON 4 MG/2 ML VIAL ONE ×5 (03:50→20:59)
[2021-05-25] MEDS ORDERED: FENTANYL CITRATE 100 MCG/2 ML AMPUL ONE ×4 (03:50→14:04)
[2021-05-25 03:59] LABS: CREATININE 0.9 mg/dL (0.6-1.3); POTASSIUM 3.1 mmol/L (3.5-5.1)
--- NOTE | 2021-05-25 04:00 | NUR ---
Patient back from ct scan with no distress noted.
[2021-05-25 04:09] LABS: BILIRUBIN,DIRECT 0.1 mg/dL (0.0-0.2); BILIRUBIN,TOTAL 0.8 mg/dL (0.2-1.0); TOTAL PROTEIN, SERUM 7.5 g/dL (6.4-8.2)
[2021-05-25 06:01] LABS: *BILIRUBIN,URIN 1+ (NEGATIVE); *BLOOD, URINE NEGATIVE (NEGATIVE); *CLARITY,URINE CLEAR (CLEAR); *COLOR,URINE DARK YELLOW (YELLOW); *KETONES,URINE 4+ (NEGATIVE); *UROBILINOGEN,URINE 0.2 E.U./dl (NORMAL); LEUKOCYTE ESTERASE ,URINE NEGATIVE (NEGATIVE); NITRITE, URINE POSITIVE (NEGATIVE); UGLUCOSE NEGATIVE (NEGATIVE)
--- NOTE | 2021-05-25 06:56 | NUR ---
Dr Macias spoke with Dr Jeffers for surgical consult.
--- NOTE | 2021-05-25 07:00 | NUR ---
ACCIDENTLY CHARGED ONLY 4MG OF ZOFRAN AT 0340. GAVE PATIENT TOTAL OF 8MG IVP AT 0343 ON LEFT LEG.
--- NOTE | 2021-05-25 11:08 | NUR ---
[employer] called. states she is clear to transfer to [facility] dx: abd pain (small bowel obstruction) Dr. Jeffers (surgery) aware.
--- NOTE | 2021-05-25 11:27 | NUR ---
Strict NPO per Dr Macias. Patient was notified and health teachings were provided. More discussion with patient needed 2/2 patient's motivation and physical state (still with chronic pains but "controlled right now" per patient)
--- NOTE | 2021-05-25 12:00 | NUR ---
able to drain via Fr 16 NGT (7am- 12N) : 900mL greenish fluids changed collection cannister.. still on continuous low - med suction
[2021-05-25 12:07] LABS: BACTERIA,URINE NONE SEEN /HPF (NONE SEEN); RBC,URINE NONE SEEN /HPF (0-3); SQUAMOUS EPITHELIAL CELL,UR FEW /HPF (NONE SEEN)
--- NOTE | 2021-05-25 13:03 | NUR ---
ER registration/admitting staff and Dr Macias notified re: patient is refusing transfer to another hospital.
--- NOTE | 2021-05-25 13:06 | NUR ---
pending call back from [facility]. waiting for bed.
--- NOTE | 2021-05-25 13:11 | NUR ---
Patient signed transfer form
--- NOTE | 2021-05-25 14:33 | NUR ---
Patient was heard c/o "I can't breathe loudly." with continuous [id number]=315% room air. Dr Macias notified. Reassurances done. Cardiac, BP & SpO2 monitors are on, set & audible. NGT to suction (low-medium strength) per MD's order.
[2021-05-25] MEDS ORDERED: HYDROMORPHONE 1 MG/1 ML DISP.SYRIN IV ONE ×3 (15:00→21:00)
[2021-05-25] MEDS ORDERED: IV NORMAL SALINE 1000 ML BAG IV ONE (15:00)
[2021-05-25] MEDS ORDERED: HYDROMORPHONE 1 MG/1 ML DISP.SYRIN ONE ×3 (15:39→20:59)
--- NOTE | 2021-05-25 16:08 | NUR ---
NGT still on conitnuous low to med suction, able to drain 500mL
--- NOTE | 2021-05-25 17:16 | NUR ---
[place] [phone] unsuccessful call attempt for status on transfer. states :" the mailbox is full and cannot accept messages at this time"
[2021-05-25] MEDS ORDERED: LORAZEPAM 2 MG/1 ML VIAL IV ONE (18:45)
--- NOTE | 2021-05-25 19:09 | NUR ---
Report given to Raj GLASS pending [facility] call back for transfer per insurance
--- NOTE | 2021-05-25 20:08 | NUR ---
Received call back from [place], spoke with Caridad, with transfer information. Patient is going to [facility] Unit ACS Bed 22, Accepting MD is Dr. Randolph, number to report to is , nurse Mateo.
--- NOTE | 2021-05-25 20:19 | NUR ---
Called [facility] for BLS transport to [facility], eta [phone]~
--- NOTE | 2021-05-25 21:10 | NUR ---
[facility] arrived to ER to transport patient to [facility]. Report and documentation given to EMT.
--- NOTE | 2021-05-25 21:30 | NUR ---
Patient out of ER via ambulance gurney to be taken to [facility] ACS room 22.
--- NOTE | 2021-05-25 21:42 | NUR ---
Report given to Mateo GLASS [facility].
== END 2021-05-25 21:44 | disposition short-term general hospital (02) ==
LOC: ER 02:41
DX: K56.609 Unspecified intestinal obstruction, unspecified as to partial versus complete obstruction (principal); G89.29 Other chronic pain; Z20.822 Contact with and (suspected) exposure to COVID-19; F11.10 Opioid abuse, uncomplicated; Z88.6 Allergy status to analgesic agent; Z88.2 Allergy status to sulfonamides; Z88.8 Allergy status to other drugs, medicaments and biological substances; Z79.899 Other long term (current) drug therapy; R00.0 Tachycardia, unspecified; R94.31 Abnormal electrocardiogram [ECG] [EKG]; E87.2 Acidosis; Z82.49 Family history of ischemic heart disease and other diseases of the circulatory system
CPT/HCPCS: 36415; 74021; 74176; 80048; 80076; 81001; 83605; 83690; 84484; 85025; 87086; 87426; 93005; 96361; 96374; 96375; 96376; 99285; J1170 ×3; J2405 ×5; J3010 ×4; 70030-TC; A4663; J7030